=== PATIENT | male | born 1960 | race Asian ===

== ENCOUNTER 2016-12-25 21:23 | Emergency (ER) | payer OTHER ==
[~2016-12-25] VITALS: Ht 185.4 cm; Wt 83.1 kg
[~2016-12-25 21:23] MED LIST: dm meds
[2016-12-25 21:46] VITALS: Ht 185.4 cm; Wt 83.1 kg
[2016-12-25] MEDS ORDERED: AZIT250T94 PO (23:37)
[2016-12-25] MEDS ORDERED: UDROBDM PO (23:37)
[2016-12-25] MEDS ORDERED: CETI10CA PO (23:37)
--- NOTE | 2016-12-25 23:41 | ERD ---
ER Documentation Chief Complaint Date/Time DATE: 12/25/16 TIME: 23:39 Chief Complaint cough for 1 week HPI This 56-year-old male who presents to the emergency department today complaining of cough for the past week. Patient states the cough is dry and also worse at night. States he is taking [id number] medication with no improvement in symptoms. States he has history of diabetes. Denies any fevers or chills. ROS All systems reviewed and are negative except as per history of present illness. Medications Home Meds Active Scripts Guaifenesin-Dextromethorphan* (Robitussin* DM) 100MG/10MG/5ML Syrup, 10 ML PO Q4H Y for COUGH for 5 Days, ML Prov:ABBEY WILCOX PA-C 12/25/16 Cetirizine Hcl* (Zyrtec*) 10 Mg Capsule, 10 MG PO DAILY, #14 TAB.CHEW Prov:ABBEY WILCOX PA-C 12/25/16 Azithromycin* (Zithromax*) 250 Mg Tablet, 250 MG PO .ZPACK DIRECTED, #6 TAB TAKE 500 MG (2 TABS) THE FIRST DAY THEN 250 MG (1 TAB) DAYS 2-5 Prov:ABBEY WILCOX PA-C 12/25/16 Reported Medications [dm meds] Unknown Strength No Conflict Check 10/19/16 Allergies Allergies: Coded Allergies: No Known Allergy (Unverified , 12/25/16) PMhx/Soc History of Surgery: No Anesthesia Reaction: No Hx Neurological Disorder: No Hx Respiratory Disorders: No Hx Cardiac Disorders: No Hx Psychiatric Problems: No Hx Miscellaneous Medical Probl: Yes (DM) Hx Alcohol Use: No Hx Substance Use: No Hx Tobacco Use: No Smoking Status: Never smoker Physical Exam Vitals Vital Signs Date Time Temp Pulse Resp B/P Pulse Ox O2 Delivery O2 Flow Rate FiO2 12/25/16 21:46 98.6 75 18 139/70 99 Physical Exam Const: No acute distress Head: Atraumatic Eyes: Normal Conjunctiva ENT: Ears TMs normal. Nose no drainage. Throat no erythema no Neck: Full range of motion..~ No meningismus. Resp: Clear to auscultation bilaterally. No absent breath sounds. No wheezing. Cardio: Regular rate and rhythm, no murmurs Abd: Soft, non tender, non distended. Normal bowel sounds Skin: No petechiae or rashes Neur: Awake and alert Psych: Normal Mood and Affect Procedures/MDM Is a 56-year-old male who presents the emergency department today complaining of cough for the past week. Given the patient's age I did offer to obtain a chest x-ray for the patient however patient has declined at this time. Patient given a prescription for azithromycin to cover for possible pneumonia versus bronchitis. Patient is afebrile and otherwise well-appearing. He is not tachycardic and his oxygen saturation 99%. Low suspicion for pleural effusion, abscess, pneumothorax, PE. Patient was also given a prescription for Robitussin and Zyrtec. At this time the patient is stable for discharge and outpatient management. Patient should follow up with their PCP in the next 1-2 days. They may return to the emergency department sooner for any persistent or worsening of symptoms. Patient understood and agreed with the plan. Departure Diagnosis: Primary Impression: Cough Condition: Fair Patient Instructions: What Is Bronchitis? Referrals: JOSE CARLOS ARGUETA (PCP) Additional Instructions: Call your primary care doctor TOMORROW for an appointment during the next 1-2 days.See the doctor sooner or return here if your condition worsens before your appointment time. Take antibiotics as prescribed Take Robitussin and Zyrtec for cough ABBEY WILCOX PA-C Dec 25, 2016 23:41
[2016-12-26 00:16] VITALS: BP 131/72; PULSE 71; RESP 18; TEMP 98.1
== END 2016-12-26 00:16 | disposition home or self-care (01) ==
LOC: FTE 21:23
DX: R05 Cough (principal); E11.9 Type 2 diabetes mellitus without complications
CPT/HCPCS: 99283

== ENCOUNTER 2017-03-08 20:01 | Inpatient (IN) | payer OTHER ==
[~2017-03-08] VITALS: Ht 170.2 cm; Wt 81.0 kg
[~2017-03-08 20:01] MED LIST changes: +AZIT250T94 PO; +CETI10CA PO; +UDROBDM PO
[2017-03-08] MEDS ORDERED: SOD CHLORIDE 0.9% 1,000 ML IV STA (22:41)
[2017-03-08] MEDS ORDERED: METF-480 PO (22:55)
[2017-03-08] MEDS ORDERED: OMEP40CA6 PO (22:56)
[2017-03-08] MEDS ORDERED: CEFTRIAXONE 1 GM/50 ML (PMX) 50 ML IVPB ONE (23:00)
[2017-03-08] MEDS ORDERED: IBUPROFEN 600 MG TAB PO ONE (23:00)
[2017-03-08 23:19] LABS: ADD SCAN DIFF NO
[2017-03-08 23:23] LABS: BASOPHILS % 0.4 % (0.0-2.0); EOSINOPHILS % 0.3 % (0.0-7.0); HEMOGLOBIN 13.4 g/dl (14.0-18.0); LYMPHOCYTES # 2.1 10^3/ul (0.8-2.9); LYMPHOCYTES % 18.7 % (15.0-51.0); MEAN CORPUSCULAR HEMOGLOBIN 30.4 pg (29.0-33.0); MEAN CORPUSCULAR HGB CONC 34.4 g/dl (32.0-37.0); MEAN CORPUSCULAR VOLUME 88.4 fl (82.0-101.0); MEAN PLATELET VOLUME 10.3 fl (7.4-10.4); MONOCYTE # 1.3 10^3/ul (0.3-0.9); MONOCYTES % 11.8 % (0.0-11.0); NEUTROPHIL # 7.6 10^3/ul (1.6-7.5); NEUTROPHILS % 68.4 % (39.0-77.0); PLATELET COUNT 241 10^3/UL (140-415); RED BLOOD COUNT 4.41 10^6/ul (4.70-6.10); RED CELL DISTRIBUTION WIDTH 12.2 % (11.5-14.5); WHITE BLOOD COUNT 11.1 10^3/ul (4.8-10.8)
--- NOTE | 2017-03-08 23:25 | ERA ---
ER Documentation Chief Complaint Date/Time DATE: 03/08/17 TIME: 23:24 Chief Complaint chest pain abd pin, body pain, fever x 5 days. shaking HPI 56-year-old man complains of fever, diaphoresis, chills, epigastric abdominal pain 4-5 days. He states the pain is pressure-like in the epigastrium, nonradiating nonexertional and denies previous episodes, denies chest pain. Patient denies cough, no sore throat, no blood per rectum or melena, no headache or neck stiffness, no blurry vision. Patient denies recent new medications, recent antibiotic use, or recent travel. ROS All systems reviewed and are negative except as per history of present illness. Medications Home Meds Reported Medications Aspirin* (Aspirin* EC) 81 Mg Tablet.dr, 81 MG PO DAILY, TAB 03/08/17 Lisinopril* (Lisinopril*) 10 Mg Tablet, 10 MG PO DAILY, #30 TAB 03/08/17 Atorvastatin Calcium* (Atorvastatin Calcium*) 20 Mg Tablet, 20 MG PO QHS, #30 TAB 03/08/17 Pantoprazole* (Pantoprazole*) 40 Mg Tablet.dr, 40 MG PO DAILY, TAB 03/08/17 Metformin* (Glucophage*) 850 Mg Tablet, 850 MG PO WITH BREAKFAST DINNE, #60 TAB 03/08/17 Discontinued Reported Medications Omeprazole* (Omeprazole*) 40 Mg Capsule.dr, 40 MG PO DAILY, #30 CAP 03/08/17 [dm meds] Unknown Strength No Conflict Check 10/19/16 Discontinued Scripts Guaifenesin-Dextromethorphan* (Robitussin* DM) 100MG/10MG/5ML Syrup, 10 ML PO Q4H Y for COUGH for 5 Days, ML Prov:ABBEY WILCOX PA-C 12/25/16 Cetirizine Hcl* (Zyrtec*) 10 Mg Capsule, 10 MG PO DAILY, #14 TAB.CHEW Prov:ABBEY WILCOX PA-C 12/25/16 Azithromycin* (Zithromax*) 250 Mg Tablet, 250 MG PO .HeverPACK DIRECTED, #6 TAB TAKE 500 MG (2 TABS) THE FIRST DAY THEN 250 MG (1 TAB) DAYS 2-5 Prov:ABBEY WILCOX PA-C 12/25/16 Allergies Allergies: Coded Allergies: No Known Allergy (Unverified , 03/08/17) PMhx/Soc Diabetes mellitus, hypercholesterolemia, gastritis History of Surgery: No Anesthesia Reaction: No Hx Neurological Disorder: No Hx Respiratory Disorders: No Hx Cardiac Disorders: No Hx Psychiatric Problems: No Hx Miscellaneous Medical Probl: Yes (DM) Hx Alcohol Use: No Hx Substance Use: No Hx Tobacco Use: No Smoking Status: Never smoker FmHx Family History: diabetes Physical Exam Vitals Vital Signs Date Time Temp Pulse Resp B/P Pulse Ox O2 Delivery O2 Flow Rate FiO2 03/08/17 23:40 98.9 91 18 123/72 98 03/08/17 20:09 100.8 107 20 123/68 99 Physical Exam GENERAL: Well-developed, well-nourished, febrile HEENT: Moist mucous membranes, pink conjunctiva, no cervical spine tenderness or step-off deformities, no goiter, no jaundice or icterus, extraocular movements intact without pain. No submandibular induration, and no pharyngeal erythema NEURO: Alert and oriented 3, cranial nerves II through XII intact bilaterally, pupils equal round reactive to light, no focal deficits or facial asymmetry, sensation intact distally Strength 5/5 in upper and lower extremities bilaterally CARDIAC: Tachycardic and regular, no murmurs rubs or gallops LUNGS: Clear bilaterally no wheezing crackles or stridor ABDOMEN: Soft nontender, no guarding, no rigidity, no rebound, no psoas sign no obturator sign. Normoactive bowel sounds SKIN: Warm and dry to touch, no abrasions, contusions, or hematomas, no lacerations, no ecchymosis, no target lesions, and without ulcers EXTREMITIES: No clubbing cyanosis or edema, calves are bilaterally symmetrical, no Homans sign, no popliteal cord sign. Distal pulses equal and bilateral PSYCH: Normal affect without agitation or irritability Result Diagram: 03/08/17 2300 03/08/17 230 Results 24 hrs Laboratory Tests Test 03/08/17 23:00 03/09/17 00:30 White Blood Count 11.110^3/ul Red Blood Count 4.4110^6/ul Hemoglobin 13.4g/dl Hematocrit 39.0% Mean Corpuscular Volume 88.4fl Mean Corpuscular Hemoglobin 30.4pg Mean Corpuscular Hemoglobin Concent 34.4g/dl Red Cell Distribution Width 12.2% Platelet Count 77711^3/UL Mean Platelet Volume 10.3fl Neutrophils % 68.4% Lymphocytes % 18.7% Monocytes % 11.8% Eosinophils % 0.3% Basophils % 0.4% Nucleated Red Blood Cells % 0.0/100WBC Neutrophils # 7.610^3/ul Lymphocytes # 2.110^3/ul Monocytes # 1.310^3/ul Eosinophils # 0.010^3/ul Basophils # 0.010^3/ul Nucleated Red Blood Cells # 0.010^3/ul Urine Color LT. YELLOW Urine Clarity CLEAR Urine pH 8.0 Urine Specific [place] 1.015 Urine Ketones NEGATIVE Urine Nitrite NEGATIVE Urine Bilirubin NEGATIVE Urine Urobilinogen 2.0 E.U./dL Urine Leukocyte Esterase NEGATIVE Urine Microscopic RBC 0-2/HPF Urine Microscopic WBC 0-2/HPF Urine Hemoglobin NEGATIVE Urine Glucose 0.1%% Urine Total Protein 1+ Sodium Level 138mmol/L Potassium Level 3.8mmol/L Chloride Level 100mmol/L Carbon Dioxide Level 28mmol/L Anion Gap 14 Blood Urea Nitrogen 7mg/dl Creatinine 0.70mg/dl Glucose Level 169mg/dl Lactic Acid Level 1.3mmol/L 1.1mmol/L Calcium Level 9.4mg/dl Total Bilirubin 0.5mg/dl Direct Bilirubin 0.00mg/dl Indirect Bilirubin 0.5mg/dl Aspartate Amino Transf (AST/SGOT) 20IU/L Alanine Aminotransferase (ALT/SGPT) 26IU/L Alkaline Phosphatase 73IU/L Troponin I < 0.012ng/ml Total Protein 7.6g/dl Albumin 4.2g/dl Globulin 3.40g/dl Albumin/Globulin Ratio 1.23 Lipase 42426U/L Current Medications Medications (Trade) Dose Ordered Sig/Arleen Route PRN Reason Start Time Stop Time Status Last Admin Dose Admin Sodium Chloride (NS) 1,000 ml @ 2,000 mls/hr Q30M STAT IV 03/08/17 22:41 03/08/17 23:10 DC 03/08/17 23:08 Ibuprofen 600 mg 600 mg ONCE ONCE PO 03/08/17 23:00 03/08/17 23:01 DC 03/08/17 23:09 Ceftriaxone Sodium 50 ml @ 100 mls/hr ONCE ONCE IVPB 03/08/17 23:00 03/08/17 23:29 DC 03/08/17 23:08 Cefepime HCl 50 ml @ 100 mls/hr ONCE ONCE IVPB 03/09/17 00:30 03/09/17 00:59 DC Vancomycin HCl 250 ml @ 125 mls/hr ONCE IVPB 03/09/17 00:30 03/09/17 02:29 03/09/17 01:06 Sodium Chloride (NS) 1,000 ml @ 2,000 mls/hr Q30M ONCE IV 03/09/17 01:00 03/09/17 01:29 DC 03/09/17 01:14 Procedures/MDM IV line was established patient was placed on monitoring specialist rhythm strip revealed a sinus tachycardia at about 110 bpm with upright P and T waves. Patient was febrile. Blood and urine cultures have been ordered results are pending I will follow-up. EKG performed, read by me revealed a sinus tachycardia 108 bpm, normal axis, narrow QRS complex, no concerning ST elevations or depressions noted. I initially treated the patient with 2 L normal saline intravenously, ibuprofen 600 mg p.o., and ceftriaxone 1 g IV. This was later followed up with vancomycin 1 g IV. Chest X-ray 1V Interpreted by me: Soft Tissue: No acute abnormalities Bones: No acute abnormalities Mediastinum/Cardiac Silhouette/Lungs: No acute abnormalities Ultrasound of the gallbladder was performed no acute cholecystitis or CBD dilatation was noted. Please refer to radiologist dictation for full report. CT scan of the abdomen and pelvis is also been ordered and performed, results showed edematous pancreas consistent with acute pancreatitis, no pseudocyst formation noted. Please refer to radiologist dictation for full report. CBC is unremarkable, electrolytes normal, liver function tests normal, troponin was negative, lipase was elevated at over 10,000. Lactic acid was low at 1.3. Patient's infectious symptoms have not stabilized and the patient is at risk of rapid decompensation. The patient will be admitted for careful hydration, antibiotic therapy, and infectious source control. Severe Sepsis Assessment: Infectious Source: Acute pancreatitis No end organ damage. Severe Sepsis Managment: Blood Cultures X 2 before broad spectrum antibiotics initiated within 3 hours of recognition. 30 ml/kg NS bolus Completed Initial Lactate: 1.3 Repeat Lactate not indicated as initial < 2.0 Critical Care: Time: 30 minutes Treatments/Evaluations: Emergent fluid management, while maintaining close respiratory support. Immediate broad spectrum antibiotic therapy. Simultaneous assessment for possible sources in order to direct therapy. Consideration for invasive and chemical support to prevent respiratory or cardiac collapse. Septic Shock Assessment (1 hour post 30 ml/kg fluid bolus): Hypotension (SBP < 90 or 40 mmHg drop, MAP < 65): No Lactic acid > 4.0 No Perfusion Reassessment for Septic Shock: Temp 98.9F, Pulse 80, RR 16, BP 120/80 Heart Exam: Regular rate rhythm Lung Exam: No Crackles Capillary Refill: Less than 2 seconds Peripheral Pulses: Radially present Skin: Warm and dry Hypotensive Treatment (not required for isolated lactic acid elevation): Comfort Care: No Central LIne: Not indicated Vasopressor started: Not indicated Accepting Care Team: Current data and ongoing care discussed. Time: Time of admission Primary Provider: Hospitalist Consulting: Infectious disease Outstanding Data: none Departure Diagnosis: Primary Impression: Acute pancreatitis Qualified Code: K85.90 - Acute pancreatitis, unspecified complication status, unspecified pancreatitis type Condition: CARI Roca MD March 08, 2017 23:25
[2017-03-08 23:26] LABS: ADD UMIC YES; URINE BILIRUBIN (Dip) NEGATIVE (NEGATIVE); URINE BLOOD (Dip) NEGATIVE (NEGATIVE); URINE COLOR LT. YELLOW (YELLOW); URINE KETONES (Dip) NEGATIVE (NEGATIVE); URINE LEUKOCYTE ESTERASE (Dip) NEGATIVE (NEGATIVE); URINE NITRITE (Dip) NEGATIVE (NEGATIVE); URINE TOTAL PROTEIN (Dip) 1+ (NEGATIVE); URINE UROBILINOGEN (Dip) 2.0 E.U./dL (0.1-1.0)
[2017-03-08] MEDS ORDERED: ATOR20TA38 PO (23:36)
[2017-03-08] MEDS ORDERED: PANT40TA4 PO (23:36)
[2017-03-08] MEDS ORDERED: ASPI-664 PO (23:37)
[2017-03-08] MEDS ORDERED: LISI10TA2 PO (23:37)
[2017-03-08 23:46] LABS: ALANINE AMINOTRANSFERASE 26 IU/L (13-69); ALBUMIN 4.2 g/dl (3.3-4.9); ALBUMIN/GLOBULIN RATIO 1.23; ALKALINE PHOSPHATASE 73 IU/L (42-121); ANION GAP 14 (8-16); ASPARTATE AMINO TRANSFERASE 20 IU/L (15-46); BILIRUBIN,INDIRECT 0.5 mg/dl (0-1.1); BILIRUBIN,TOTAL 0.5 mg/dl (0.2-1.3); BLOOD UREA NITROGEN 7 mg/dl (7-20); CALCIUM 9.4 mg/dl (8.4-10.2); CARBON DIOXIDE 28 mmol/L (21-31); CHLORIDE 100 mmol/L (97-110); GLUCOSE 169 mg/dl (70-220); POTASSIUM 3.8 mmol/L (3.5-5.1); SODIUM 138 mmol/L (135-144); TOTAL PROTEIN 7.6 g/dl (6.1-8.1)
[2017-03-08 23:49] LABS: URINE RBCS 0-2 /HPF ([, 0])
[2017-03-08 23:55] LABS: TROPONIN-I < 0.012 ng/ml (0.00-0.12)
[2017-03-09] VITALS (13 sets, daily range): BP systolic 115–137; BP diastolic 68–73; PULSE 81–99; RESP 18–20; TEMP 98.9; Ht 170.2 cm; Wt 81.0 kg
--- NOTE | 2017-03-09 00:21 | RADRPT ---
PROCEDURE: XR Chest. CLINICAL INDICATION: Pain. TECHNIQUE: Single frontal chest x-ray. COMPARISON: None. FINDINGS: The cardiomediastinal silhouette is unremarkable. There is no congestive heart failure.. No focal i nfiltrate is seen. There is no pleural effusion. There is no pneumothorax. The osseous structures are unremarkable. IMPRESSION: 1. No active disease. RPTAT: HMVK .Shahzad Rao MD, Date Time Electronically viewed and signed by .Shahzad Rao MD, MD on 03/09/2017 00:21 .K/
[2017-03-09] MEDS ORDERED: CEFEPIME 1GM/50 ML (PMX) 50 ML IVPB ONE (00:30)
[2017-03-09] MEDS ORDERED: VANCOMYCIN 1 GM (PMX) 250 ML IVPB SCH (00:30)
[2017-03-09] MEDS ORDERED: SOD CHLORIDE 0.9% 1,000 ML IV ONE (01:00)
--- NOTE | 2017-03-09 01:37 | RADRPT ---
PROCEDURE: CT Abdomen and pelvis without contrast. CLINICAL INDICATION: Abdominal pain. TECHNIQUE: CT scan of the abdomen and pelvis was performed on a multi-detector high-resolution CT scanner. Contiguous axial images were obtained from the lung bases to the ischial tuberosities wit hout intravenous contrast. Coronal and sagittal reformatted images were also obtained. Images were reviewed on the PACS workstation. One or more of the following dose reduction techniques were used: - Automated exposure control. - Adjustment of the mA and/or kV according to patient size. - Use of iterative reconstruction technique. Exam CTD/vol = 10.64 mGy. Total exam DLP = 726.01 mGy-cm. COMPARISON: None. FINDINGS: Evaluation of the lung bases demonstrates mild bibasilar atelectasis. Abdomen: The liver is normal in size. There is no focal mass or dilatation of the biliary tree. T he gallbladder is not distended. The pancreatic tail is mildly edematous with mild adjacent strandi ng extending along the left anterior pararenal space. The spleen and left adrenal gland are within normal limits. There is a small right adrenal nodule measuring 11 mm with Hounsfield characteristic s consistent with adenoma. Bilateral kidneys are normal in size with a small cyst within the upper pole of the left kidney. There is no radiopaque renal or ureteral calculus identified. There is no hydronephrosis or hydroureter. There is no retroperitoneal adenopathy. The abdominal aorta is of normal caliber. There is no abnormal bowel wall thickening or distension. There is no bowel obstruction or free air . A normal appendix is identified. There is no diverticulosis or diverticulitis. There is no asci janine. Pelvis: The bladder is unremarkable. The prostate and seminal vesicles are within normal limits. There is no significant pelvic adenopathy or free fluid. Evaluation of the osseous structures demonstrates no suspicious lytic or blastic lesion. IMPRESSION: Edematous pancreatic tail with mild adjacent stranding suggestive of pancreatitis. Clinically corre late. There is no fluid collection or pseudocyst formation. Small right adrenal adenoma. .Dale Sharma MD, MD Date Time Electronically viewed and signed by .Dale Sharma MD, MD on 03/09/2017 01:37 .T/
--- NOTE | 2017-03-09 01:42 | RADRPT ---
PROCEDURE: Ultrasound of the abdomen. CLINICAL INDICATION: Right upper quadrant pain. TECHNIQUE: Sonographic images of the abdomen were performed. COMPARISON: No pertinent prior examinations were submitted for comparison. FINDINGS: Liver: The liver is normal in echogencity and size measuring approximately 15.5 cm. The hepatic vei ns and portal veins are patent with appropriate directional flow. No intrahepatic ductal dilatation is seen. Gallbladder: The gallbladder is contracted and has normal wall thickness. No pericholecystic fluid or gallstones are visualized. The common duct measures 2.5 mm. Pancreas: There is limited evaluation of the pancreatic body and tail. The visualized portions of the pancreas are unremarkable. Kidneys: The right kidney measures 10.5 cm. There is normal corticomedullary differentiation. Ther e is no evidence of renal calculus or hydronephrosis. IVC: The visualized portion of the inferior vena cava is unremarkable. Aorta: Normal in size. Free fluid: None. IMPRESSION: Unremarkable right upper quadrant ultrasound. RPTAT: HIKT .Zafar Jonse MD, MD Date Time Electronically viewed and signed by .Zafar Jones MD, on 03/09/2017 01:42 .T/
[2017-03-09] MEDS ORDERED: ONDANSETRON 4 MG INJ IV PRN (03:00)
[2017-03-09] MEDS ORDERED: HYDROmorphONE 1 MG/ML SYG IV PRN (03:00)
[2017-03-09] MEDS ORDERED: NACL 0.9% 3 ML SYG IV SCH (03:00)
--- NOTE | 2017-03-09 03:11 | HP ---
Date/Time of Note Date/Time of Note DATE: 03/09/17 TIME: 02:55 Assessment/Plan VTE Prophylaxis VTE Prophylaxis Intervention: SCD's Lines/Catheters IV [facility]ter Type [facility]from [facility] Peripheral IV Central line still needed: No Urinary Cath still in place: No Assessment/Plan Chief Complaint/Hosp Course This is a 56-year-old male being admitted to telemetry for: #1 acute pancreatitis: Etiology is unknown at this time. CT scan was negative for gallstones and ultrasound of the gallbladder was also negative for gallstones patient denies any alcohol history. He does have a history of hyperlipidemia we will check triglycerides. She also has a history of diabetes. In the ED he did receive broad-spectrum antibiotics. CT scan is indicative of pancreatitis however did not show any evidence of pseudocyst or fluid collection. At the current time we will keep the patient n.p.o., IV fluids at 150 cc an hour of normal saline, pain control. Monitor for further fevers. Check a lipase in the a.m. #2 hyperlipidemia: We will check lipid profile including triglycerides continue current statin #3 diabetes: Patient is currently on oral medications will DC oral medications for insulin sliding scale #4 GERD: Start on IV Protonix #5 hypertension: Continue lisinopril #6 incidentaloma: There is a small right adrenal nodule measuring 11 mm with Hounsfield characteristics consistent with adenoma. Will follow discussed with patient further management. #6 DVT and GI prophylaxis, put patient on SCDs, Protonix IV Problems: HPI/ROS Admit Date/Time Admit Date/Time 03/08/2017 Hx of Present Illness 56-year-old man complains of fever, diaphoresis, chills, epigastric abdominal pain 4-5 days. He states the pain is pressure-like in the epigastrium, nonradiating nonexertional and denies previous episodes, denies chest pain. Patient denies cough, no sore throat, no blood per rectum or melena, no headache or neck stiffness, no blurry vision. Patient denies recent new medications, recent antibiotic use, or recent travel. Denies any alcohol use. Upon admission to the ER patient had a temperature 100.8. Allergies: None Medications: See MAR ROS Const: Fevers 5 days nausea Eyes : No pain discharge or redness or change in visual acuity ENT: No pain, sore throat, congestion, congestion, dysphagia or discharge Respiratory: No shortness of breath, cough, sputum, wheezing, or pleuritic pain Cardiovascular: No chest pain, palpitation, PND, or edema GI : Negative except for what stated in the HPI Genitourinary: No dysuria, hematuria, flank pain , discharge or CVA tenderness Musculoskeletal: No joint pain, back pain, neck pain, restricted range of motion in neck or joints Skin: No rash, bruising or hives Neuro: No headache, dizziness, syncope, seizure, focal weakness Endocrine: No polyuria, polydipsia, temperature intolerance Psych: No hallucination, depression, anxiety or suicidal ideation PMH/Family/Social Past Medical History Diabetes mellitus, hyperlipidemia, GERD Past Surgical History None Past Surgical Hx: no surgical history Family History Significant Family History: hypertension (Mother) Social History Alcohol Use: none Smoking Status: Never smoker Drug Use: none Exam/Review of Systems Vital Signs Vitals Vital Signs Date Time Temp Pulse Resp B/P Pulse Ox O2 Delivery O2 Flow Rate FiO2 03/09/17 02:17 98.9 91 18 125/72 98 03/09/17 01:00 Room Air Exam Exam General: Patient is lying in bed and currently in no acute distress The patient is alert oriented -3 HEENT: Atraumatic, normocephalic. The pupils are equal, round and reactive. Extraocular motor are intact Neck: Supple with full range of motion. No rigidity or meningismus Chest: Nontender Lungs: Clear to auscultation bilaterally no crackles rales or wheezing Heart: Normal S1-S2, Regular rhythm and rate. No murmur, S3, or S4 Abdomen: Soft, tender to palpation over the epigastric region, positive bowel sounds Extremities: Normal to inspection, no edema no cyanosis Neurologic: Normal mental status, speech normal, cranial nerves II through XII are intact, motor and sensory are intact, no focal weakness Additional Comments CAT scan abdomen and pelvis IMPRESSION: Edematous pancreatic tail with mild adjacent stranding suggestive of pancreatitis. Clinically correlate. There is no fluid collection or pseudocyst formation. Small right adrenal adenoma. Ultrasound of the right upper quadrant IMPRESSION: Unremarkable right upper quadrant ultrasound. Chest x-ray No active disease Labs Result Diagram: 03/08/17 2300 03/08/17 2300 FARTUN CESAR March 09, 2017 03:06
[2017-03-09] MEDS: SOD CHLORIDE 0.9% 1,000 ML IV SCH ×4 (04:12→21:05)
[2017-03-09] MEDS: PANTOPRAZOLE 40 MG INJ IV SCH (06:35)
[2017-03-09] MEDS: LISINOPRIL 10 MG TAB PO SCH (08:59)
[2017-03-09] MEDS ORDERED: GLUCAGON 1 MG INJ IM PRN (11:30)
[2017-03-09] MEDS ORDERED: GLUCOSE GEL 15 GRAM TUBE BUCCAL PRN (11:30)
[2017-03-09] MEDS ORDERED: GLUCOSE GEL 15 GRAM TUBE PO PRN ×2 (11:30)
[2017-03-09] MEDS ORDERED: DEXTROSE 50% 50 ML SYRINGE IV PRN ×2 (11:30)
[2017-03-09] MEDS: INSULIN ASPART [NOVOLOG] 3 ML PEN SC SCH ×3 (13:00→21:00)
[2017-03-09] MEDS: ATORVASTATIN 20 MG TAB PO SCH (21:04)
[2017-03-10] VITALS (11 sets, daily range): BP systolic 121–146; BP diastolic 68–75; PULSE 76–95; RESP 16–18
[2017-03-10] MEDS ORDERED: ACETAMINOPHEN 325 MG TAB PO PRN (00:30)
[2017-03-10] MEDS: INSULIN ASPART [NOVOLOG] 3 ML PEN SC SCH ×6 (01:00→21:00)
[2017-03-10] MEDS: SOD CHLORIDE 0.9% 1,000 ML IV SCH ×3 (03:59→18:52)
[2017-03-10] MEDS: PANTOPRAZOLE 40 MG INJ IV SCH (06:22)
[2017-03-10 06:50] LABS: ADD SCAN DIFF NO
[2017-03-10 07:08] LABS: BASOPHILS % 0.3 % (0.0-2.0); EOSINOPHILS % 0.2 % (0.0-7.0); HEMATOCRIT 35.2 % (42.0-52.0); HEMOGLOBIN 12.1 g/dl (14.0-18.0); LYMPHOCYTES # 2.1 10^3/ul (0.8-2.9); LYMPHOCYTES % 22.2 % (15.0-51.0); MEAN CORPUSCULAR HEMOGLOBIN 30.6 pg (29.0-33.0); MEAN CORPUSCULAR HGB CONC 34.4 g/dl (32.0-37.0); MEAN CORPUSCULAR VOLUME 88.9 fl (82.0-101.0); MEAN PLATELET VOLUME 10.4 fl (7.4-10.4); MONOCYTE # 1.1 10^3/ul (0.3-0.9); MONOCYTES % 11.6 % (0.0-11.0); NEUTROPHILS % 65.4 % (39.0-77.0); PLATELET COUNT 207 10^3/UL (140-415); RED BLOOD COUNT 3.96 10^6/ul (4.70-6.10); RED CELL DISTRIBUTION WIDTH 12.1 % (11.5-14.5); WHITE BLOOD COUNT 9.2 10^3/ul (4.8-10.8)
[2017-03-10 07:26] LABS: PHOSPHORUS 4.3 mg/dl (2.5-4.9)
[2017-03-10 07:36] LABS: AMYLASE 446 U/L (11-123)
[2017-03-10 08:21] LABS: ALBUMIN 3.4 g/dl (3.3-4.9); ALBUMIN/GLOBULIN RATIO 1.09; BILIRUBIN,INDIRECT 0.6 mg/dl (0-1.1); BILIRUBIN,TOTAL 0.6 mg/dl (0.2-1.3); CALCIUM 8.6 mg/dl (8.4-10.2); CREATININE 0.65 mg/dl (0.61-1.24); TOTAL PROTEIN 6.5 g/dl (6.1-8.1)
[2017-03-10] MEDS: LISINOPRIL 10 MG TAB PO SCH (08:44)
--- NOTE | 2017-03-10 12:33 | PN ---
DATE: 03/10/2017 TIME OF EVALUATION: 11:30 a.m. SUBJECTIVE DATA: Complains of minimal abdominal discomfort. Complains of dysuria and frequent urination. OBJECTIVE DATA: VITAL SIGNS: Temperature 99.8, pulse rate 90, respiratory rate 17, blood pressure 146/72, oxygen saturation 97% on room air. GENERAL: This is a 56-year-old [place] male lying in bed in no apparent distress. HEENT: Head normocephalic and atraumatic. Eyes: Anicteric sclerae. Hyperpigmentation of the face. NECK: Supple. No JVD noticed. RESPIRATORY: Bilaterally clear to auscultation. No adventitious breath sounds heard. No use of accessory muscles of respiration. CARDIAC: Regular rate and rhythm. S1 and S2 heard. ABDOMEN: Soft. Tenderness in the left upper quadrant. No guarding. Bowel sounds hypoactive in all 4 quadrants. GENITOURINARY: Deferred. EXTREMITIES: No cyanosis, no clubbing, no edema. Peripheral pulses are palpable. NEUROLOGIC: The patient is awake, alert and oriented. Cranial nerves are grossly intact. LABORATORY AND DIAGNOSTIC DATA: WBC 7.2, hemoglobin 12.1, hematocrit 35.2, platelet count 207. Sodium 136, potassium 4.0, chloride 104, carbon dioxide 25 , anion gap 11, BUN 6, creatinine 0.64, glucose 108, calcium 8.6, phosphorus 4.3 , magnesium 2.0, amylase 446, lipase 6672. ASSESSMENT AND PLAN: 1. Acute pancreatitis. Etiology unclear. The patient is not a drinker. The patient has no evidence of any hypertriglyceridemia. The patient has no gallstones. The patient will be maintained on bowel rest. The patient will be started on empiric antibiotics since the patient was having fevers last night. The patient's CT scan did not show any evidence of pancreatic pseudocyst. 2. Type 2 diabetes mellitus. Hemoglobin A1c is 6.6. The patient will be continued on sliding scale insulin. 3. Incidental adrenal adenoma. The patient also has underlying hyperpigmentation of the skin. An endocrinology consult will be called for further evaluation of this. 4. Dyslipidemia. Continue statins. 5. Essential hypertension. Continue antihypertensives. 6. Benign prostatic hypertrophy. The patient will be started on alpha-1 antagonists. 7. Fluid, electrolytes and nutrition. N.p.o. except for medications. Continue IV fluids. 8. Deep venous thrombosis prophylaxis with bilateral sequential compression devices. 9. Gastrointestinal prophylaxis. Proton pump inhibitors. 10. Plan. Continue n.p.o. Continue pain medications. Continue empiric antibiotics. Obtain Endocrinology evaluation for adrenal adenoma. The case was discussed with Dr. Phillips. The plan of care was explained to the patient's family who was at the bedside. SHAWNA PHILLIPS MD, AM/ZAINAB Conf#: [id number] DID#: [id number] MTDD
[2017-03-10] MEDS: PIPER-TAZO 3.375 GM IV (PMX) 100 ML IVPB SCH ×2 (13:47→21:24)
[2017-03-10] MEDS: TAMSULOSIN (SR) 0.4 MG CAP PO SCH (21:23)
[2017-03-10] MEDS: ATORVASTATIN 20 MG TAB PO SCH (21:24)
[2017-03-10] MEDS ORDERED: DEXAMETHASONE 1 MG TAB PO ONE (23:30)
[2017-03-11 00:04] VITALS: PULSE 90
[2017-03-11] MEDS: INSULIN ASPART [NOVOLOG] 3 ML PEN SC SCH ×6 (01:00→21:00)
[2017-03-11] MEDS: SOD CHLORIDE 0.9% 1,000 ML IV SCH ×4 (02:05→16:42)
[2017-03-11 04:06] VITALS: PULSE 85
[2017-03-11] MEDS: PANTOPRAZOLE 40 MG INJ IV SCH (05:07)
[2017-03-11] MEDS: PIPER-TAZO 3.375 GM IV (PMX) 100 ML IVPB SCH ×3 (05:08→21:25)
[2017-03-11 06:42] LABS: ADD SCAN DIFF NO
[2017-03-11 06:44] LABS: BASOPHILS % 0.2 % (0.0-2.0); EOSINOPHILS # 0.1 10^3/ul (0.0-0.5); EOSINOPHILS % 0.6 % (0.0-7.0); HEMATOCRIT 34.5 % (42.0-52.0); LYMPHOCYTES # 1.1 10^3/ul (0.8-2.9); LYMPHOCYTES % 12.9 % (15.0-51.0); MEAN CORPUSCULAR HEMOGLOBIN 30.3 pg (29.0-33.0); MEAN CORPUSCULAR HGB CONC 34.8 g/dl (32.0-37.0); MEAN CORPUSCULAR VOLUME 87.1 fl (82.0-101.0); MEAN PLATELET VOLUME 10.3 fl (7.4-10.4); MONOCYTE # 0.9 10^3/ul (0.3-0.9); MONOCYTES % 9.8 % (0.0-11.0); NEUTROPHIL # 6.6 10^3/ul (1.6-7.5); PLATELET COUNT 248 10^3/UL (140-415); RED BLOOD COUNT 3.96 10^6/ul (4.70-6.10); WHITE BLOOD COUNT 8.6 10^3/ul (4.8-10.8)
[2017-03-11 07:09] LABS: CALCIUM 8.7 mg/dl (8.4-10.2); CREATININE 0.67 mg/dl (0.61-1.24); POTASSIUM 3.9 mmol/L (3.5-5.1)
[2017-03-11 07:10] VITALS: BP 109/60; RESP 18
[2017-03-11] MEDS: LISINOPRIL 10 MG TAB PO SCH (09:35)
--- NOTE | 2017-03-11 10:55 | PN ---
Date/Time of Note Date/Time of Note DATE: 03/11/17 TIME: 10:53 Assessment/Plan VTE Prophylaxis VTE Prophylaxis Intervention: SCD's Lines/Catheters IV [facility]ter [facility] (from [facility]): Peripheral IV Urinary Cath still in place: No Assessment/Plan Chief Complaint/Hosp Course 1. Acute pancreatitis. Etiology unclear. The patient is not a drinker. The patient has no evidence of any hypertriglyceridemia. The patient has no gallstones. The patient will be maintained on bowel rest. The on empiric antibiotics because of febrile illness. The patient's CT scan did not show any evidence of pancreatic pseudocyst. 2. Type 2 diabetes mellitus. Hemoglobin A1c is 6.6. The patient will be continued on sliding scale insulin. 3. Incidental adrenal adenoma. The patient being followed by Endocrinology. 4. Dyslipidemia. Continue statins. 5. Essential hypertension. Continue antihypertensives. 6. Benign prostatic hypertrophy. The patient will be continued on alpha-1 antagonists. 7. Fluid, electrolytes and nutrition. N.p.o. except for medications. Continue IV fluids. 8. Deep venous thrombosis prophylaxis with bilateral sequential compression devices. 9. Gastrointestinal prophylaxis. Proton pump inhibitors. 10. Plan. Continue n.p.o. Continue pain medications. Continue empiric antibiotics. The case was discussed with Dr. Salas. The plan of care was explained to the patient's son who was at the bedside. Problems: Subjective 24 Hr Interval Summary Free Text/Dictation Minimal abdominal pain. Exam/Review of Systems Vital Signs Vitals Vital Signs Date Time Temp Pulse Resp B/P Pulse Ox O2 Delivery O2 Flow Rate FiO2 03/11/17 07:10 99.1 89 18 109/60 03/10/17 18:53 95 03/09/17 01:00 Room Air Intake and Output 03/10/17 03/10/17 03/11/17 15:00 23:00 07:00 Intake Total 1600 ml 40 ml Balance 1600 ml 40 ml Exam GENERAL: This is a 56-year-old [place] male lying in bed in no apparent distress. HEENT: Head normocephalic and atraumatic. Eyes: Anicteric sclerae. Hyperpigmentation of the face. NECK: Supple. No JVD noticed. RESPIRATORY: Bilaterally clear to auscultation. No adventitious breath sounds heard. No use of accessory muscles of respiration. CARDIAC: Regular rate and rhythm. S1 and S2 heard. ABDOMEN: Soft. Tenderness in the left upper quadrant. No guarding. Bowel sounds hypoactive in all 4 quadrants. GENITOURINARY: Deferred. EXTREMITIES: No cyanosis, no clubbing, no edema. Peripheral pulses are palpable. NEUROLOGIC: The patient is awake, alert and oriented. Cranial nerves are grossly intact. Results Result Diagram: 03/11/17 0558 03/11/17 0558 Results 24 hrs Laboratory Tests Test 03/10/17 12:59 03/10/17 16:45 03/10/17 20:46 03/11/17 02:07 Bedside Glucose 115 107 100 96 Test 03/11/17 05:06 03/11/17 05:58 03/11/17 08:03 Bedside Glucose 105 116 White Blood Count 8.6 Red Blood Count 3.96 L Hemoglobin 12.0 L Hematocrit 34.5 L Mean Corpuscular Volume 87.1 Mean Corpuscular Hemoglobin 30.3 Mean Corpuscular Hemoglobin Concent 34.8 Red Cell Distribution Width 12.0 Platelet Count 248 Mean Platelet Volume 10.3 Neutrophils % 76.0 Lymphocytes % 12.9 L Monocytes % 9.8 Eosinophils % 0.6 Basophils % 0.2 Nucleated Red Blood Cells % 0.0 Neutrophils # 6.6 Lymphocytes # 1.1 Monocytes # 0.9 Eosinophils # 0.1 Basophils # 0.0 Nucleated Red Blood Cells # 0.0 Sodium Level 136 Potassium Level 3.9 Chloride Level 102 Carbon Dioxide Level 23 Anion Gap 15 Blood Urea Nitrogen 8 Creatinine 0.67 Glucose Level 109 Calcium Level 8.7 Magnesium Level 2.1 Amylase Level 242 #H Lipase 2940 H Random Cortisol 6.7 Medications Medications Current Medications Sodium Chloride (NS) 1,000 ml @ 150 mls/hr Q6H40M IV Last administered on 09:36; Admin Dose 150 MLS/HR; Start 03/09/17 at 02:52 Ondansetron HCl (Zofran Inj) 4 mg Q6H PRN IV NAUSEA AND/OR VOMITING; Start 03/09 at 03:00 Hydromorphone HCl (Dilaudid) 0.5 mg Q4H PRN IV PAIN LEVEL 7-10; Start 03/09/17 at 03:00 Pantoprazole (Protonix Iv) 40 mg DAILY@06 IV Last administered on 03/11/17 05: 07; Admin Dose 40 MG; Start 03/09/17 at 06:00 Atorvastatin Calcium (Lipitor) 20 mg QHS PO Last administered on 03/10/17 21:24 ; Admin Dose 20 MG; Start 03/09/17 at 21:00 Lisinopril (Zestril) 10 mg DAILY PO Last administered on 03/11/17 09:35; Admin Dose 10 MG; Start 03/09/17 at 09:00 Insulin Aspart (Novolog Insulin Pen) NOVOLOG *MILD* ALGORITHM Q4 SC ; Start 03/09 at 13:00 Miscellaneous Information 1 ea NOTE XX ; Start 03/09/17 at 11:30 Glucose (Glutose) 15 gm Q15M PRN PO DECREASED GLUCOSE; Start 03/09/17 at 11:30 Glucose (Glutose) 22.5 gm Q15M PRN PO DECREASED GLUCOSE; Start 03/09/17 at 11:30 Dextrose (D50w Syringe) 25 ml Q15M PRN IV DECREASED GLUCOSE; Start 03/09/17 at 11:30 Dextrose (D50w Syringe) 50 ml Q15M PRN IV DECREASED GLUCOSE; Start 03/09/17 at 11:30 Glucagon (Glucagen) 1 mg Q15M PRN IM DECREASED GLUCOSE; Start 03/09/17 at 11:30 Glucose (Glutose) 15 gm Q15M PRN BUCCAL DECREASED GLUCOSE; Start 03/09/17 at 11: 30 Acetaminophen 650 mg 650 mg Q6H PRN PO PAIN AND OR ELEVATED TEMP Last administered on 03/10/17 00:32; Admin Dose 650 MG; Start 03/10/17 at 00:30 Piperacillin Sod/ Tazobactam Sod (Zosyn 3.375gm/ 100 ml (Pmx)) 100 ml @ 200 mls /hr Q8 IVPB Last administered on 03/11/17 05:08; Admin Dose 200 MLS/HR; Start 03/10/17 at 14:00 Tamsulosin HCl (Flomax) 0.4 mg HS PO Last administered on 03/10/17 21:23; Admin Dose 0.4 MG; Start 03/10/17 at 21:00 SHAWNA CASTREJON NP March 11, 2017 10:54
[2017-03-11 11:33] LABS: IRON 21 ug/dl (35-150)
[2017-03-11 11:43] LABS: TOTAL IRON BINDING CAPACITY 237 ug/dl (241-421)
[2017-03-11 20:06] VITALS: BP 131/69; RESP 16
[2017-03-11] MEDS: TAMSULOSIN (SR) 0.4 MG CAP PO SCH (21:25)
[2017-03-11] MEDS: ATORVASTATIN 20 MG TAB PO SCH (21:25)
[2017-03-12 00:26] VITALS: BP 124/68; RESP 16
[2017-03-12] MEDS: SOD CHLORIDE 0.9% 1,000 ML IV SCH ×4 (01:00→17:08)
[2017-03-12] MEDS: INSULIN ASPART [NOVOLOG] 3 ML PEN SC SCH ×6 (01:00→21:00)
[2017-03-12 04:17] VITALS: BP 128/71; RESP 16
[2017-03-12] MEDS: PANTOPRAZOLE 40 MG INJ IV SCH ×2 (05:29→18:09)
[2017-03-12] MEDS: PIPER-TAZO 3.375 GM IV (PMX) 100 ML IVPB SCH ×3 (05:30→21:18)
[2017-03-12 06:30] VITALS: BP 135/68; PULSE 83; RESP 18
[2017-03-12 07:12] LABS: ADD SCAN DIFF NO
[2017-03-12 07:22] LABS: BASOPHILS % 0.4 % (0.0-2.0); EOSINOPHILS # 0.2 10^3/ul (0.0-0.5); EOSINOPHILS % 2.1 % (0.0-7.0); HEMATOCRIT 35.8 % (42.0-52.0); LYMPHOCYTES # 2.4 10^3/ul (0.8-2.9); LYMPHOCYTES % 24.4 % (15.0-51.0); MEAN CORPUSCULAR HEMOGLOBIN 29.5 pg (29.0-33.0); MEAN CORPUSCULAR HGB CONC 33.5 g/dl (32.0-37.0); MEAN PLATELET VOLUME 10.2 fl (7.4-10.4); MONOCYTE # 1.1 10^3/ul (0.3-0.9); MONOCYTES % 10.8 % (0.0-11.0); NEUTROPHILS % 62.1 % (39.0-77.0); PLATELET COUNT 267 10^3/UL (140-415); RED BLOOD COUNT 4.07 10^6/ul (4.70-6.10); WHITE BLOOD COUNT 9.7 10^3/ul (4.8-10.8)
[2017-03-12 07:33] LABS: MAGNESIUM 1.9 mg/dl (1.7-2.5); PHOSPHORUS 3.9 mg/dl (2.5-4.9)
[2017-03-12 07:35] LABS: ALBUMIN 3.4 g/dl (3.3-4.9); ALBUMIN/GLOBULIN RATIO 1.06; BILIRUBIN,INDIRECT 0.4 mg/dl (0-1.1); BILIRUBIN,TOTAL 0.4 mg/dl (0.2-1.3); CALCIUM 8.6 mg/dl (8.4-10.2); CREATININE 0.69 mg/dl (0.61-1.24); POTASSIUM 3.7 mmol/L (3.5-5.1); TOTAL PROTEIN 6.6 g/dl (6.1-8.1)
[2017-03-12 07:41] VITALS: BP 128/70; RESP 19
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
--- NOTE | 2017-03-12 09:31 | PN ---
Date/Time of Note Date/Time of Note DATE: 03/12/17 TIME: 09:29 Assessment/Plan VTE Prophylaxis VTE Prophylaxis Intervention: SCD's Lines/Catheters [facility] Peripheral IV Urinary Cath still in place: No Assessment/Plan Chief Complaint/Hosp Course 1. Acute pancreatitis. Etiology unclear. The patient is not a drinker. The patient has no evidence of any hypertriglyceridemia. The patient has no gallstones. The patient will be maintained on bowel rest. The on empiric antibiotics because of febrile illness. The patient's CT scan did not show any evidence of pancreatic pseudocyst. The patient will be followed by communications technician. 2. Melena. No onset on 03/12/2017. Will obtain stool for OB. Will monitor H&H closely. Will transfuse as needed. Obtain a gastroenterology consult. 3. Type 2 diabetes mellitus. Hemoglobin A1c is 6.6. The patient will be continued on sliding scale insulin. 4. Incidental adrenal adenoma. The patient being followed by Endocrinology. 5. Impotence. The patient being followed by endocrinology. 6. Dyslipidemia. Continue statins. 6. Essential hypertension. Continue antihypertensives. 7. Benign prostatic hypertrophy. The patient will be continued on alpha-1 antagonists. 8. Normocytic, normochromic anemia. Iron panel showing iron deficiency. Will start the patient on iron supplements. 9. Fluid, electrolytes and nutrition. N.p.o. except for medications. Continue IV fluids. 10. Deep venous thrombosis prophylaxis with bilateral sequential compression devices. 11. Gastrointestinal prophylaxis. Proton pump inhibitors. 12. Plan. Continue n.p.o. Continue pain medications. Continue empiric antibiotics. Start iron supplements. Obtain gastroenterology consult. The case was discussed with Dr. Salas. Problems: Subjective 24 Hr Interval Summary Free Text/Dictation No onset melena. Complains of impotence for past 6 months. Exam/Review of Systems Vital Signs Vitals Vital Signs Date Time Temp Pulse Resp B/P Pulse Ox O2 Delivery O2 Flow Rate FiO2 03/12/17 07:41 98.7 75 19 128/70 96 03/12/17 06:30 Room Air Intake and Output 03/11/17 03/11/17 03/12/17 15:00 23:00 07:00 Intake Total 1700 ml 20 ml Balance 1700 ml 20 ml Exam GENERAL: This is a 56-year-old [place] male lying in bed in no apparent distress. HEENT: Head normocephalic and atraumatic. Eyes: Anicteric sclerae. Hyperpigmentation of the face. NECK: Supple. No JVD noticed. RESPIRATORY: Bilaterally clear to auscultation. No adventitious breath sounds heard. No use of accessory muscles of respiration. CARDIAC: Regular rate and rhythm. S1 and S2 heard. ABDOMEN: Soft. Tenderness in the left upper quadrant. No guarding. Bowel sounds hypoactive in all 4 quadrants. GENITOURINARY: Deferred. EXTREMITIES: No cyanosis, no clubbing, no edema. Peripheral pulses are palpable. NEUROLOGIC: The patient is awake, alert and oriented. Cranial nerves are grossly intact. Results Result Diagram: 03/12/17 0550 03/12/17 0550 Results 24 hrs Laboratory Tests Test 03/11/17 10:15 03/11/17 12:55 03/11/17 16:41 03/11/17 20:33 Random Cortisol 3.3 Bedside Glucose 118 103 106 Test 03/12/17 05:00 03/12/17 05:38 03/12/17 05:50 Phosphorus Level 3.9 Magnesium Level 1.9 Bedside Glucose 98 White Blood Count 9.7 Red Blood Count 4.07 L Hemoglobin 12.0 L Hematocrit 35.8 L Mean Corpuscular Volume 88.0 Mean Corpuscular Hemoglobin 29.5 Mean Corpuscular Hemoglobin Concent 33.5 Red Cell Distribution Width 12.0 Platelet Count 267 Mean Platelet Volume 10.2 Neutrophils % 62.1 Lymphocytes % 24.4 Monocytes % 10.8 Eosinophils % 2.1 Basophils % 0.4 Nucleated Red Blood Cells % 0.0 Neutrophils # 6.0 Lymphocytes # 2.4 Monocytes # 1.1 H Eosinophils # 0.2 Basophils # 0.0 Nucleated Red Blood Cells # 0.0 Sodium Level 136 Potassium Level 3.7 Chloride Level 102 Carbon Dioxide Level 25 Anion Gap 13 Blood Urea Nitrogen 9 Creatinine 0.69 Glucose Level 104 Calcium Level 8.6 Total Bilirubin 0.4 Direct Bilirubin 0.00 Indirect Bilirubin 0.4 Aspartate Amino Transf (AST/SGOT) 21 Alanine Aminotransferase (ALT/SGPT) 29 Alkaline Phosphatase 61 Total Protein 6.6 Albumin 3.4 Globulin 3.20 Albumin/Globulin Ratio 1.06 Amylase Level 155 H Lipase 1523 H Medications Medications Current Medications Sodium Chloride (NS) 1,000 ml @ 150 mls/hr Q6H40M IV Last administered on 04:12; Admin Dose 150 MLS/HR; Start 03/09/17 at 02:52 Ondansetron HCl (Zofran Inj) 4 mg Q6H PRN IV NAUSEA AND/OR VOMITING; Start 03/09 at 03:00 Hydromorphone HCl (Dilaudid) 0.5 mg Q4H PRN IV PAIN LEVEL 7-10; Start 03/09/17 at 03:00 Pantoprazole (Protonix Iv) 40 mg DAILY@06 IV Last administered on 03/12/17 05: 29; Admin Dose 40 MG; Start 03/09/17 at 06:00 Atorvastatin Calcium (Lipitor) 20 mg QHS PO Last administered on 03/11/17 21:25 ; Admin Dose 20 MG; Start 03/09/17 at 21:00 Lisinopril (Zestril) 10 mg DAILY PO Last administered on 03/11/17 09:35; Admin Dose 10 MG; Start 03/09/17 at 09:00 Insulin Aspart (Novolog Insulin Pen) NOVOLOG *MILD* ALGORITHM Q4 SC ; Start 03/09 at 13:00 Miscellaneous Information 1 ea NOTE XX ; Start 03/09/17 at 11:30 Glucose (Glutose) 15 gm Q15M PRN PO DECREASED GLUCOSE; Start 03/09/17 at 11:30 Glucose (Glutose) 22.5 gm Q15M PRN PO DECREASED GLUCOSE; Start 03/09/17 at 11:30 Dextrose (D50w Syringe) 25 ml Q15M PRN IV DECREASED GLUCOSE; Start 03/09/17 at 11:30 Dextrose (D50w Syringe) 50 ml Q15M PRN IV DECREASED GLUCOSE; Start 03/09/17 at 11:30 Glucagon (Glucagen) 1 mg Q15M PRN IM DECREASED GLUCOSE; Start 03/09/17 at 11:30 Glucose (Glutose) 15 gm Q15M PRN BUCCAL DECREASED GLUCOSE; Start 03/09/17 at 11: 30 Acetaminophen 650 mg 650 mg Q6H PRN PO PAIN AND OR ELEVATED TEMP Last administered on 03/10/17 00:32; Admin Dose 650 MG; Start 03/10/17 at 00:30 Piperacillin Sod/ Tazobactam Sod (Zosyn 3.375gm/ 100 ml (Pmx)) 100 ml @ 200 mls /hr Q8 IVPB Last administered on 03/12/17 05:30; Admin Dose 200 MLS/HR; Start 03/10/17 at 14:00 Tamsulosin HCl (Flomax) 0.4 mg HS PO Last administered on 03/11/17 21:25; Admin Dose 0.4 MG; Start 03/10/17 at 21:00 Cosyntropin (Cortrosyn) 0.25 mg ONCE ONCE IV ; Start 03/12/17 at 10:30; Stop 03/12/17 at 10:31 SHAWNA CASTREJON NP March 12, 2017 09:31
[2017-03-12] MEDS: SOD FERRIC GLUC COMPLX 125 MG in SOD CHLORIDE 0.9% 100 ML IVPB SCH (10:26)
[2017-03-12] MEDS ORDERED: COSYNTROPIN 0.25 MG INJ IV ONE (10:30)
[2017-03-12 10:37] VITALS: BP 135/75; PULSE 79
[2017-03-12] MEDS: LISINOPRIL 10 MG TAB PO SCH (10:37)
--- NOTE | 2017-03-12 12:47 | CONS ---
Date/Time of Note Date/Time of Note DATE: 03/12/17 TIME: 12:33 Assessment/Plan Assessment/Plan Additional Assessment/Plan Melena stool Evaluate GI bleed versus chronic iron deficiency vs other etiology Stool OB, if positive strongly recommend EGD Monitor H&H daily, transfuse 2 units for hemoglobin less than 7.[address] abdomen: The liver is normal in size. There is no focal mass or dilatation of the biliary tree. The gallbladder is not distended. The pancreatic tail is mildly edematous with mild adjacent stranding extending along the left anterior pararenal space. The spleen and left adrenal gland are within normal limits. There is a smal l right adrenal nodule measuring 11 mm with Hounsfield characteristics consistent with adenoma. There is no abnormal bowel wall thickening or distension. There is no bowel obstruction or free air. A normal appendix is identified. There is no diverticulosis or diverticulitis. There is no ascites. Continue PPI twice daily EGD tomorrow with Dr. Avalos.pt, , and daughter advised of R/B/A of procedure and she provides informed consent to proceed Pancreatitis Rule out choledocholithiasis IVF Hydration Nausea and pain control NPO till pain free Review MRCP ERCP if clinically indicated and may occur in place of EGD, pt, , and daughter advised of R/B/A of procedure and she provides informed consent to proceed Monitor LFTs, amylase, lipase May require Surgery consult Hyperpigmentation Management per primary Erectile dysfunction Management per primary Awaiting hormone test Diabetes mellitus type 2 Management per primary Accu-Cheks per protocol Hypertension Continue home medications Management per primary Hyperlipidemia Continue home medications Management per primary Iron deficiency Currently getting supplementation Management per primary Problem #1 Management per Primary [] following Problem #1 Management per Primary [] following Problem #1 Management per Primary [] following Problem #1 Management per Primary [] following Further recommendations depend on clinical course Patient seen in collaboration with Dr. Avalos Consultation Date/Type/Reason Admit Date/Time 03/08/2017 Type of Consultation: Gastroenterology Reason for Consultation Pancreatitis Hx of Present Illness Mr.Mdhabibur Alcantar is a 56-year-old male that presented to the ED secondary complaints of epigastric and left upper quadrant abdominal pain, fever, chills, diaphoresis for the last week. Patient denies nausea and vomiting. At bedside patient presently reports left side mid abdominal pain that comes and goes. Patient denies melena stools and diarrhea. Patient denies new medication, sick contacts, alcohol use, and travel outside the [place]. Patient does have past medical history of melasma, high cholesterol, erectile dysfunction, and acid reflux that has been well controlled for 10 years with omeprazole 40 mg daily. Gallbladder ultrasound negative for gallstones however lipase elevated but trending downward. Will order MRCP to further evaluate. Additionally, report of melena stools at bedside yesterday. Hemoglobin stable at 12.0. Constitutional: no complaints ENT: no complaints Respiratory: no complaints Cardiovascular: no complaints Gastrointestinal: pain Genitourinary: other (Symptoms of BPH; erectile dysfunction) Neurologic: no complaints Past Medical History Medical History: diabetes, hypertension Past Surgical History Past Surgical Hx: no surgical history Social History Alcohol Use: none Smoking Status: Never smoker Drug Use: none Exam/Review of Systems Vital Signs Vitals Vital Signs Date Time Temp Pulse Resp B/P Pulse Ox O2 Delivery O2 Flow Rate FiO2 03/12/17 10:37 79 135/75 03/12/17 07:41 98.7 19 96 03/12/17 06:30 Room Air Intake and Output 03/11/17 03/11/17 03/12/17 15:00 23:00 07:00 Intake Total 1700 ml 20 ml Balance 1700 ml 20 ml Exam Constitutional: alert, oriented, well developed Psych: nl mood/affect Head: normocephalic Eyes: EOMI, nl conjunctiva, nl lids ENMT: nl external ears & nose, nl lips & teeth, nl nasal mucosa & septum Respiratory: clear to auscultation, normal air movement Cardiovascular: regular rate and rhythm Gastrointestinal: soft, slight epigastric and slight left lower quadrant tenderness Musculoskeletal: nl extremities to inspection Neurological: JR. SYSTEMS ADMINISTRATOR II-XII intact Results Result Diagram: 03/12/17 0550 03/12/17 0550 Results 24 hrs Laboratory Tests Test 03/11/17 12:55 03/11/17 16:41 03/11/17 20:33 03/12/17 05:00 Bedside Glucose 118 103 106 Phosphorus Level 3.9 Magnesium Level 1.9 Test 03/12/17 05:38 03/12/17 05:50 03/12/17 10:15 03/12/17 10:32 Bedside Glucose 98 97 White Blood Count 9.7 Red Blood Count 4.07 L Hemoglobin 12.0 L Hematocrit 35.8 L Mean Corpuscular Volume 88.0 Mean Corpuscular Hemoglobin 29.5 Mean Corpuscular Hemoglobin Concent 33.5 Red Cell Distribution Width 12.0 Platelet Count 267 Mean Platelet Volume 10.2 Neutrophils % 62.1 Lymphocytes % 24.4 Monocytes % 10.8 Eosinophils % 2.1 Basophils % 0.4 Nucleated Red Blood Cells % 0.0 Neutrophils # 6.0 Lymphocytes # 2.4 Monocytes # 1.1 H Eosinophils # 0.2 Basophils # 0.0 Nucleated Red Blood Cells # 0.0 Sodium Level 136 Potassium Level 3.7 Chloride Level 102 Carbon Dioxide Level 25 Anion Gap 13 Blood Urea Nitrogen 9 Creatinine 0.69 Glucose Level 104 Calcium Level 8.6 Total Bilirubin 0.4 Direct Bilirubin 0.00 Indirect Bilirubin 0.4 Aspartate Amino Transf (AST/SGOT) 21 Alanine Aminotransferase (ALT/SGPT) 29 Alkaline Phosphatase 61 Total Protein 6.6 Albumin 3.4 Globulin 3.20 Albumin/Globulin Ratio 1.06 Amylase Level 155 H Lipase 1523 H CA 19-9 Antigen 43.4 H Vitamin B12 Level 351 Random Cortisol 12.3 Test 03/12/17 10:50 Random Cortisol 18.1 Medications Medications Current Medications Sodium Chloride (NS) 1,000 ml @ 150 mls/hr Q6H40M IV Last administered on 04:12; Admin Dose 150 MLS/HR; Start 03/09/17 at 02:52 Ondansetron HCl (Zofran Inj) 4 mg Q6H PRN IV NAUSEA AND/OR VOMITING; Start 03/09 at 03:00 Hydromorphone HCl (Dilaudid) 0.5 mg Q4H PRN IV PAIN LEVEL 7-10; Start 03/09/17 at 03:00 Pantoprazole (Protonix Iv) 40 mg DAILY@06 IV Last administered on 03/12/17 05: 29; Admin Dose 40 MG; Start 03/09/17 at 06:00 Atorvastatin Calcium (Lipitor) 20 mg QHS PO Last administered on 03/11/17 21:25 ; Admin Dose 20 MG; Start 03/09/17 at 21:00 Lisinopril (Zestril) 10 mg DAILY PO Last administered on 03/12/17 10:37; Admin Dose 10 MG; Start 03/09/17 at 09:00 Insulin Aspart (Novolog Insulin Pen) NOVOLOG *MILD* ALGORITHM Q4 SC ; Start 03/09 at 13:00 Miscellaneous Information 1 ea NOTE XX ; Start 03/09/17 at 11:30 Glucose (Glutose) 15 gm Q15M PRN PO DECREASED GLUCOSE; Start 03/09/17 at 11:30 Glucose (Glutose) 22.5 gm Q15M PRN PO DECREASED GLUCOSE; Start 03/09/17 at 11:30 Dextrose (D50w Syringe) 25 ml Q15M PRN IV DECREASED GLUCOSE; Start 03/09/17 at 11:30 Dextrose (D50w Syringe) 50 ml Q15M PRN IV DECREASED GLUCOSE; Start 03/09/17 at 11:30 Glucagon (Glucagen) 1 mg Q15M PRN IM DECREASED GLUCOSE; Start 03/09/17 at 11:30 Glucose (Glutose) 15 gm Q15M PRN BUCCAL DECREASED GLUCOSE; Start 03/09/17 at 11: 30 Acetaminophen 650 mg 650 mg Q6H PRN PO PAIN AND OR ELEVATED TEMP Last administered on 03/10/17 00:32; Admin Dose 650 MG; Start 03/10/17 at 00:30 Piperacillin Sod/ Tazobactam Sod (Zosyn 3.375gm/ 100 ml (Pmx)) 100 ml @ 200 mls /hr Q8 IVPB Last administered on 03/12/17 05:30; Admin Dose 200 MLS/HR; Start 03/10/17 at 14:00 Tamsulosin HCl 0.4 mg 0.4 mg HS PO Last administered on 03/11/17 21:25; Admin Dose 0.4 MG; Start 03/10/17 at 21:00 Ferric Sodium Gluconate Complex/ Sodium Chloride (Ferrlecit/NS) 110 ml @ 100 mls/hr Q24H IVPB Last administered on 03/12/17 10:26; Admin Dose 100 MLS/HR; Start 03/12/17 at 11:00; Stop 03/14/17 at 12:05 DENY EL March 12, 2017 12:43
--- NOTE | 2017-03-12 15:10 | RADRPT ---
PROCEDURE: MRCP. CLINICAL INDICATION: Abdominal pain. Elevated lipase. TECHNIQUE: MRCP was performed on the a high-resolution, high Ewa field strength scanner. Patien t was examined without contrast. 3-D coronal rotating MIP images of the biliary tree are available for review. COMPARISON: Ultrasound from 03/09/2017. CT from 03/08/2017. FINDINGS: Gallbladder is unremarkable. The biliary tree is not dilated. No intrahepatic nor extrahepatic bili geo dilatation is present. No filling defect or choledocholithiasis is seen. There is no stricture o r obstruction. The pancreatic duct, as visualized, is equally unremarkable. The pancreatic tail is prominent and demonstrates mildly increased T2 signal with minimal peripancre atic fat stranding. The adjacent splenic flexure of the colon demonstrates wall edema and minimal p ericolonic fluid. Small simple appearing bilateral renal cysts are present. The right adrenal nodule seen on prior CT is not as evident on this exam. Otherwise, the liver, spleen, adrenal glands, kidneys, and stomach demonstrate normal signal intensity and morphology. The visualized bowel is unremarkable. IMPRESSION: 1. Focally prominent pancreatic tail with increased T2 signal and minimal surrounding inflammatory change, consistent with focal acute pancreatitis. There is also likely associated reactive inflamma tory change of the splenic flexure of the colon. 2. Simple appearing bilateral renal cyst. 3. Otherwise, unremarkable exam. RPTAT: EE .Ryne Garner MD, MD Date Time Electronically viewed and signed by .Ryne Garner MD, MD on 03/12/2017 15:09 .A/
[2017-03-12 20:08] VITALS: BP 147/77; RESP 20
[2017-03-12] MEDS: ATORVASTATIN 20 MG TAB PO SCH (21:17)
[2017-03-12] MEDS: TAMSULOSIN (SR) 0.4 MG CAP PO SCH (21:17)
[2017-03-13] VITALS (11 sets, daily range): BP systolic 133–150; BP diastolic 62–84; PULSE 66–77; RESP 15–21
[2017-03-13] MEDS: SOD CHLORIDE 0.9% 1,000 ML IV SCH ×2 (00:23→06:50)
[2017-03-13] MEDS: INSULIN ASPART [NOVOLOG] 3 ML PEN SC SCH ×6 (01:00→21:00)
[2017-03-13] MEDS: PANTOPRAZOLE 40 MG INJ IV SCH ×2 (05:42→18:00)
[2017-03-13] MEDS: PIPER-TAZO 3.375 GM IV (PMX) 100 ML IVPB SCH ×3 (05:43→21:51)
[2017-03-13 06:01] LABS: ADD SCAN DIFF NO
[2017-03-13 06:16] LABS: BASOPHIL # 0.1 10^3/ul (0.0-0.1); BASOPHILS % 0.6 % (0.0-2.0); EOSINOPHILS # 0.4 10^3/ul (0.0-0.5); EOSINOPHILS % 4.1 % (0.0-7.0); HEMATOCRIT 34.4 % (42.0-52.0); HEMOGLOBIN 11.7 g/dl (14.0-18.0); LYMPHOCYTES % 23.7 % (15.0-51.0); MEAN CORPUSCULAR HEMOGLOBIN 29.7 pg (29.0-33.0); MEAN CORPUSCULAR VOLUME 87.3 fl (82.0-101.0); MEAN PLATELET VOLUME 9.9 fl (7.4-10.4); MONOCYTE # 0.8 10^3/ul (0.3-0.9); MONOCYTES % 9.6 % (0.0-11.0); NEUTROPHIL # 5.3 10^3/ul (1.6-7.5); NEUTROPHILS % 61.5 % (39.0-77.0); PLATELET COUNT 284 10^3/UL (140-415); RED BLOOD COUNT 3.94 10^6/ul (4.70-6.10); WHITE BLOOD COUNT 8.6 10^3/ul (4.8-10.8)
[2017-03-13 06:33] LABS: INR 1.19; PROTIME 15.2 Sec (12.2-14.2); PT RATIO 1.2
[2017-03-13 06:38] LABS: MAGNESIUM 1.8 mg/dl (1.7-2.5); PARTIAL THROMBOPLASTIN TIME 31.8 Sec (25.0-35.0)
[2017-03-13 06:59] LABS: ALBUMIN 3.3 g/dl (3.3-4.9); ALBUMIN/GLOBULIN RATIO 1.03; BILIRUBIN,INDIRECT 0.3 mg/dl (0-1.1); BILIRUBIN,TOTAL 0.3 mg/dl (0.2-1.3); CALCIUM 8.7 mg/dl (8.4-10.2); CREATININE 0.63 mg/dl (0.61-1.24); POTASSIUM 3.7 mmol/L (3.5-5.1); TOTAL PROTEIN 6.5 g/dl (6.1-8.1)
[2017-03-13] MEDS: LISINOPRIL 10 MG TAB PO SCH (09:27)
[2017-03-13] MEDS: SOD FERRIC GLUC COMPLX 125 MG in SOD CHLORIDE 0.9% 100 ML IVPB SCH (11:07)
--- NOTE | 2017-03-13 13:33 | PN ---
Date/Time of Note Date/Time of Note DATE: 03/13/17 TIME: 13:29 Assessment/Plan VTE Prophylaxis VTE Prophylaxis Intervention: SCD's Lines/Catheters IV [facility]ter [facility]from [facility] Peripheral IV Urinary Cath still in place: No Assessment/Plan Chief Complaint/Hosp Course Assessment and plan: 1. Acute pancreatitis. Etiology unclear. The patient is not a drinker. The patient has no evidence of any hypertriglyceridemia or gallstones. The patient will be maintained on bowel rest. The on empiric antibiotics because of febrile illness. The patient's CT scan did not show any evidence of pancreatic pseudocyst. Cephalometric Technician has been consulted. Follow-up GI recommendation , follow-up lipase level in a.m. 2. Melena. No onset on 03/12/2017. Hemoglobin and hematocrit has been stable. Will transfuse as needed. Plan for EGD today 3. Type 2 diabetes mellitus. Hemoglobin A1c is 6.6. The patient will be continued on sliding scale insulin. 4. Incidental adrenal adenoma. The patient being followed by Endocrinology. 5. Impotence. The patient being followed by endocrinology. 6. Dyslipidemia. Continue statins. 6. Essential hypertension. Continue antihypertensives. 7. Benign prostatic hypertrophy. The patient will be continued on alpha-1 antagonists. 8. Normocytic, normochromic anemia. Iron panel showing iron deficiency. Continue iron supplements. 9. Deep venous thrombosis prophylaxis with bilateral sequential compression devices. 10. Gastrointestinal prophylaxis. Proton pump inhibitors. Plan. Continue n.p.o. Continue pain medications. Continue empiric antibiotics and iron supplements. Plan for upper EGD today. Plan to discharge home Monday03/15/2017 if clear as gastroenterology standpoint Problems: Subjective 24 Hr Interval Summary Free Text/Dictation Patient denies of any chest pain or shortness of breath Denies of any abdominal discomfort No nausea vomiting diarrhea Waiting for upper endoscopy procedure All the questions were answered at the bedside Exam/Review of Systems Vital Signs Vitals Vital Signs Date Time Temp Pulse Resp B/P Pulse Ox O2 Delivery O2 Flow Rate FiO2 03/13/17 08:01 98.0 78 18 137/70 96 03/12/17 06:30 Room Air Intake and Output 03/12/17 03/12/17 03/13/17 15:00 23:00 07:00 Intake Total 2710 ml 2400 ml Output Total 150 ml 1100 ml Balance -150 ml 2710 ml 1300 ml Exam General: The patient is well-developed, Not in acute distress. HEENT: Atraumatic, normocephalic. The pupils are equal and round . Neck: Supple with full range of motion. Chest: Normal expansion of the thorax during inspiration Lungs: Clear to auscultation bilaterally Heart: Normal S1-S2, Regular rhythm and rate. Abdomen: Soft , nontender, nondistended , bowel sounds are present. Extremities: Normal to inspection, no edema no cyanosis Neurologic: Normal mental status,The patient is awake, alert and oriented . Results Result Diagram: 03/13/17 0537 03/13/17 0537 Results 24 hrs Laboratory Tests Test 03/12/17 13:30 03/12/17 17:22 03/12/17 21:16 03/13/17 01:02 Bedside Glucose 109 102 90 92 Test 03/13/17 05:37 03/13/17 05:39 03/13/17 09:26 03/13/17 13:03 White Blood Count 8.6 Red Blood Count 3.94 L Hemoglobin 11.7 L Hematocrit 34.4 L Mean Corpuscular Volume 87.3 Mean Corpuscular Hemoglobin 29.7 Mean Corpuscular Hemoglobin Concent 34.0 Red Cell Distribution Width 12.0 Platelet Count 284 Mean Platelet Volume 9.9 Neutrophils % 61.5 Lymphocytes % 23.7 Monocytes % 9.6 Eosinophils % 4.1 Basophils % 0.6 Nucleated Red Blood Cells % 0.0 Neutrophils # 5.3 Lymphocytes # 2.0 Monocytes # 0.8 Eosinophils # 0.4 Basophils # 0.1 Nucleated Red Blood Cells # 0.0 Prothrombin Time 15.2 H Prothrombin Time Ratio 1.2 INR International Normalized Ratio 1.19 Activated Partial Thromboplast Time 31.8 Sodium Level 137 Potassium Level 3.7 Chloride Level 105 Carbon Dioxide Level 22 Anion Gap 14 Blood Urea Nitrogen 7 Creatinine 0.63 Glucose Level 89 Calcium Level 8.7 Phosphorus Level 4.0 Magnesium Level 1.8 Total Bilirubin 0.3 Direct Bilirubin 0.00 Indirect Bilirubin 0.3 Aspartate Amino Transf (AST/SGOT) 20 Alanine Aminotransferase (ALT/SGPT) 31 Alkaline Phosphatase 58 Total Protein 6.5 Albumin 3.3 Globulin 3.20 Albumin/Globulin Ratio 1.03 Amylase Level 138 H Lipase 787 H Bedside Glucose 89 85 79 Medications Medications Current Medications Sodium Chloride (NS) 1,000 ml @ 150 mls/hr Q6H40M IV Last administered on 06:50; Admin Dose 150 MLS/HR; Start 03/09/17 at 02:52 Ondansetron HCl (Zofran Inj) 4 mg Q6H PRN IV NAUSEA AND/OR VOMITING; Start 03/09 at 03:00 Hydromorphone HCl (Dilaudid) 0.5 mg Q4H PRN IV PAIN LEVEL 7-10; Start 03/09/17 at 03:00 Atorvastatin Calcium (Lipitor) 20 mg QHS PO Last administered on 03/12/17 21:17 ; Admin Dose 20 MG; Start 03/09/17 at 21:00 Lisinopril (Zestril) 10 mg DAILY PO Last administered on 03/13/17 09:27; Admin Dose 10 MG; Start 03/09/17 at 09:00 Insulin Aspart (Novolog Insulin Pen) NOVOLOG *MILD* ALGORITHM Q4 SC ; Start 03/09 at 13:00 Miscellaneous Information 1 ea NOTE XX ; Start 03/09/17 at 11:30 Glucose (Glutose) 15 gm Q15M PRN PO DECREASED GLUCOSE; Start 03/09/17 at 11:30 Glucose (Glutose) 22.5 gm Q15M PRN PO DECREASED GLUCOSE; Start 03/09/17 at 11:30 Dextrose (D50w Syringe) 25 ml Q15M PRN IV DECREASED GLUCOSE; Start 03/09/17 at 11:30 Dextrose (D50w Syringe) 50 ml Q15M PRN IV DECREASED GLUCOSE; Start 03/09/17 at 11:30 Glucagon (Glucagen) 1 mg Q15M PRN IM DECREASED GLUCOSE; Start 03/09/17 at 11:30 Glucose (Glutose) 15 gm Q15M PRN BUCCAL DECREASED GLUCOSE; Start 03/09/17 at 11: 30 Acetaminophen 650 mg 650 mg Q6H PRN PO PAIN AND OR ELEVATED TEMP Last administered on 03/10/17 00:32; Admin Dose 650 MG; Start 03/10/17 at 00:30 Piperacillin Sod/ Tazobactam Sod (Zosyn 3.375gm/ 100 ml (Pmx)) 100 ml @ 200 mls /hr Q8 IVPB Last administered on 03/13/17 05:43; Admin Dose 200 MLS/HR; Start 03/10/17 at 14:00 Tamsulosin HCl 0.4 mg 0.4 mg HS PO Last administered on 03/12/17 21:17; Admin Dose 0.4 MG; Start 03/10/17 at 21:00 Ferric Sodium Gluconate Complex/ Sodium Chloride (Ferrlecit/NS) 110 ml @ 100 mls/hr Q24H IVPB Last administered on 03/13/17 11:07; Admin Dose 100 MLS/HR; Start 03/12/17 at 11:00; Stop 03/14/17 at 12:05 Pantoprazole (Protonix Iv) 40 mg BID@06,18 IV Last administered on 03/13/17 05: 42; Admin Dose 40 MG; Start 03/12/17 at 18:00 MAGGIE BRANDON MD March 13, 2017 13:33
[2017-03-13] MEDS: D5W-0.45 NACL + KCL 20 MEQ 1,000 ML IV SCH (14:07)
[2017-03-13] MEDS ORDERED: PROPOFOL 20 ML ONE (19:24)
[2017-03-13] MEDS: TAMSULOSIN (SR) 0.4 MG CAP PO SCH (21:51)
[2017-03-14] MEDS: INSULIN ASPART [NOVOLOG] 3 ML PEN SC SCH ×5 (01:00→21:00)
[2017-03-14] MEDS ORDERED: GLUCOSE GEL 15 GRAM TUBE PO PRN ×2 (01:30)
[2017-03-14] MEDS ORDERED: GLUCOSE GEL 15 GRAM TUBE BUCCAL PRN (01:30)
[2017-03-14] MEDS ORDERED: DEXTROSE 50% 50 ML SYRINGE IV PRN ×2 (01:30)
[2017-03-14] MEDS ORDERED: GLUCAGON 1 MG INJ IM PRN (01:30)
[2017-03-14] MEDS: ACCU-CHEK XX SCH (02:00)
[2017-03-14] MEDS: D5W-0.45 NACL + KCL 20 MEQ 1,000 ML IV SCH ×2 (03:20→05:27)
[2017-03-14] MEDS: PANTOPRAZOLE 40 MG INJ IV SCH ×2 (05:27→17:15)
[2017-03-14] MEDS: PIPER-TAZO 3.375 GM IV (PMX) 100 ML IVPB SCH ×3 (05:27→21:33)
[2017-03-14 06:08] LABS: ADD SCAN DIFF NO
[2017-03-14 06:13] LABS: BASOPHIL # 0.1 10^3/ul (0.0-0.1); BASOPHILS % 0.7 % (0.0-2.0); EOSINOPHILS # 0.3 10^3/ul (0.0-0.5); EOSINOPHILS % 4.4 % (0.0-7.0); HEMATOCRIT 35.8 % (42.0-52.0); HEMOGLOBIN 12.2 g/dl (14.0-18.0); LYMPHOCYTES # 1.9 10^3/ul (0.8-2.9); LYMPHOCYTES % 25.7 % (15.0-51.0); MEAN CORPUSCULAR HEMOGLOBIN 29.5 pg (29.0-33.0); MEAN CORPUSCULAR HGB CONC 34.1 g/dl (32.0-37.0); MEAN CORPUSCULAR VOLUME 86.5 fl (82.0-101.0); MEAN PLATELET VOLUME 9.9 fl (7.4-10.4); MONOCYTE # 0.7 10^3/ul (0.3-0.9); MONOCYTES % 9.6 % (0.0-11.0); NEUTROPHIL # 4.3 10^3/ul (1.6-7.5); NEUTROPHILS % 59.3 % (39.0-77.0); PLATELET COUNT 324 10^3/UL (140-415); RED BLOOD COUNT 4.14 10^6/ul (4.70-6.10); RED CELL DISTRIBUTION WIDTH 12.1 % (11.5-14.5); WHITE BLOOD COUNT 7.3 10^3/ul (4.8-10.8)
[2017-03-14 07:29] VITALS: BP 122/71; RESP 18
[2017-03-14 07:44] LABS: ALBUMIN 3.5 g/dl (3.3-4.9); ALBUMIN/GLOBULIN RATIO 1.06; BILIRUBIN,INDIRECT 0.3 mg/dl (0-1.1); BILIRUBIN,TOTAL 0.3 mg/dl (0.2-1.3); CREATININE 0.62 mg/dl (0.61-1.24); MAGNESIUM 1.9 mg/dl (1.7-2.5); POTASSIUM 3.6 mmol/L (3.5-5.1); TOTAL PROTEIN 6.8 g/dl (6.1-8.1)
[2017-03-14] MEDS: LISINOPRIL 10 MG TAB PO SCH (08:57)
[2017-03-14] MEDS: SOD FERRIC GLUC COMPLX 125 MG in SOD CHLORIDE 0.9% 100 ML IVPB SCH (11:43)
--- NOTE | 2017-03-14 12:22 | GILP ---
DATE OF PROCEDURE: 03/13/2017 NAME OF PROCEDURE: Esophagogastroduodenoscopy with biopsies. SURGEON: Jacquie Avalos MD. PREMEDICATION: Monitored anesthesia care by anesthesiologist. INSTRUMENT USED: Olympus panendoscope. TECHNIQUE: After informed consent, with the patient/relatives understanding the procedure, its indic ations, potential risks and complications, including but not limited to: allergic reaction, bleeding , perforation or infection, and after all pertinent questions were answered to the patients satisfac tion, the patient/relatives signed witnessed informed consent. Following this, premedication was administered slowly IV push under careful cardiovascular and respi ratory monitoring with pulse oximetry, automatic blood pressure and monitoring engineer. Once the sedative effect was achieved the patient was place in the left lateral decubitus, the panen doscope was introduced and advanced under visual control. Careful examination of the upper gastrointestinal tract, both on insertion as well as withdrawal of the instrument disclosed the following findings: ESOPHAGUS: The mucosa of the entire esophagus appears within normal limits. There is no evidence of esophagitis, varices, neoplasm or stricture. No hiatal hernia identified. STOMACH: Upon entrance to the stomach air was insufflated, the gastric echavarria distended normally. Th ere is erythema and edema of the mucosa of a moderate degree. No bleeding site is identified. Biop sies were obtained in limited fashion to rule out H. pylori infection. PYLORUS: The pylorus appears patent and within normal limits, with no evidence of gastric outlet obs truction. DUODENUM: The duodenal mucosa was carefully examined in the duodenal bulb as well as the second port ion of the duodenum and appears unremarkable with no evidence of duodenitis, ulcer or neoplasm. The instrument was then withdrawn, the patient tolerated the procedure well and was transfer out of the endoscopy suite awake, and in good condition to continue recovery under observation. IMPRESSION: Moderate gastritis. Rule out Helicobacter pylori infection. Biopsies were obtained. RECOMMENDATIONS: Proton pump inhibitor therapy. Pathology will be reviewed as soon as it is avail able. Further recommendations will depend on the patient's clinical course. Dictated By: JACQUIE AVALOS MS/ZAINAB Conf#: [id number] DID#: [id number] CC: JACQUIE AVALOS;*EndCC*
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
--- NOTE | 2017-03-14 13:59 | PN ---
Date/Time of Note Date/Time of Note DATE: 03/14/17 TIME: 13:58 Assessment/Plan VTE Prophylaxis VTE Prophylaxis Intervention: SCD's Lines/Catheters [facility] Peripheral IV Urinary Cath still in place: No Assessment/Plan Chief Complaint/Hosp Course Assessment and plan: 1. Acute pancreatitis. Etiology unclear. The patient is not a drinker. The patient has no evidence of any hypertriglyceridemia or gallstones. The patient will be maintained on bowel rest. The on empiric antibiotics because of febrile illness. The patient's CT scan did not show any evidence of pancreatic pseudocyst. Lute Packer Or Applier has been consulted. Follow-up GI recommendation , lipase level is improving significantly, follow-up lipase level in a.m. 2. Melena. No onset on 03/12/2017. Hemoglobin and hematocrit has been stable. Status post EGD with no evidence of active bleeding 3. Type 2 diabetes mellitus. Hemoglobin A1c is 6.6. The patient will be continued on sliding scale insulin. 4. Incidental adrenal adenoma. The patient being followed by Endocrinology. 5. Impotence. The patient being followed by endocrinology. 6. Dyslipidemia. Continue statins. 6. Essential hypertension. Continue antihypertensives. 7. Benign prostatic hypertrophy. The patient will be continued on alpha-1 antagonists. 8. Normocytic, normochromic anemia. Iron panel showing iron deficiency. Continue iron supplements. 9. Deep venous thrombosis prophylaxis with bilateral sequential compression devices. 10. Gastrointestinal prophylaxis. Proton pump inhibitors. Plan. Continue n.p.o. Continue pain medications. Continue empiric antibiotics and iron supplements. Plan for upper EGD today. Plan to discharge home Monday03/15/2017 if clear as gastroenterology standpoint Problems: Subjective 24 Hr Interval Summary Free Text/Dictation Patient denies any chest pain or shortness of breath Denies of having any abdominal discomfort No nausea vomiting diarrhea Tolerating clear liquid diet Exam/Review of Systems Vital Signs Vitals Vital Signs Date Time Temp Pulse Resp B/P Pulse Ox O2 Delivery O2 Flow Rate FiO2 03/14/17 07:29 98.3 75 18 122/71 96 03/13/17 20:21 Room Air Intake and Output 03/13/17 03/13/17 03/14/17 15:00 23:00 07:00 Intake Total 1110 ml 250 ml 500 ml Output Total 200 ml Balance 1110 ml 50 ml 500 ml Exam General: The patient is well-developed, Not in acute distress. HEENT: Atraumatic, normocephalic. The pupils are equal and round . Neck: Supple with full range of motion. Chest: Normal expansion of the thorax during inspiration Lungs: Clear to auscultation bilaterally Heart: Normal S1-S2, Regular rhythm and rate. Abdomen: Soft , nontender, nondistended , bowel sounds are present. Extremities: Normal to inspection, no edema no cyanosis Neurologic: Normal mental status,The patient is awake, alert and oriented . Results Result Diagram: 03/14/17 0535 03/14/17 0535 Results 24 hrs Laboratory Tests Test 03/13/17 16:46 03/13/17 21:47 03/14/17 01:02 03/14/17 05:35 Bedside Glucose 111 94 108 White Blood Count 7.3 Red Blood Count 4.14 L Hemoglobin 12.2 L Hematocrit 35.8 L Mean Corpuscular Volume 86.5 Mean Corpuscular Hemoglobin 29.5 Mean Corpuscular Hemoglobin Concent 34.1 Red Cell Distribution Width 12.1 Platelet Count 324 Mean Platelet Volume 9.9 Neutrophils % 59.3 Lymphocytes % 25.7 Monocytes % 9.6 Eosinophils % 4.4 Basophils % 0.7 Nucleated Red Blood Cells % 0.0 Neutrophils # 4.3 Lymphocytes # 1.9 Monocytes # 0.7 Eosinophils # 0.3 Basophils # 0.1 Nucleated Red Blood Cells # 0.0 Sodium Level 136 Potassium Level 3.6 Chloride Level 103 Carbon Dioxide Level 24 Anion Gap 13 Blood Urea Nitrogen 5 L Creatinine 0.62 Glucose Level 136 # Calcium Level 9.0 Magnesium Level 1.9 Total Bilirubin 0.3 Direct Bilirubin 0.00 Indirect Bilirubin 0.3 Aspartate Amino Transf (AST/SGOT) 26 Alanine Aminotransferase (ALT/SGPT) 26 Alkaline Phosphatase 61 Total Protein 6.8 Albumin 3.5 Globulin 3.30 H Albumin/Globulin Ratio 1.06 Lipase 573 H Test 03/14/17 07:45 03/14/17 11:44 Bedside Glucose 130 201 Medications Medications Current Medications Ondansetron HCl (Zofran Inj) 4 mg Q6H PRN IV NAUSEA AND/OR VOMITING; Start 03/09 at 03:00 Hydromorphone HCl (Dilaudid) 0.5 mg Q4H PRN IV PAIN LEVEL 7-10; Start 03/09/17 at 03:00 Lisinopril (Zestril) 10 mg DAILY PO Last administered on 03/14/17 08:57; Admin Dose 10 MG; Start 03/09/17 at 09:00 Acetaminophen 650 mg 650 mg Q6H PRN PO PAIN AND OR ELEVATED TEMP Last administered on 03/10/17 00:32; Admin Dose 650 MG; Start 03/10/17 at 00:30 Piperacillin Sod/ Tazobactam Sod (Zosyn 3.375gm/ 100 ml (Pmx)) 100 ml @ 200 mls /hr Q8 IVPB Last administered on 03/14/17 13:34; Admin Dose 200 MLS/HR; Start 03/10/17 at 14:00 Tamsulosin HCl (Flomax) 0.4 mg HS PO Last administered on 03/13/17 21:51; Admin Dose 0.4 MG; Start 03/10/17 at 21:00 Pantoprazole 40 mg 40 mg BID@06,18 IV Last administered on 03/14/17 05:27; Admin Dose 40 MG; Start 03/12/17 at 18:00 Potassium Chloride/Dextrose/ Sod Cl (D5-1/2ns + KCl 20 Meq) 1,000 ml @ 75 mls/ hr [id number] IV Last administered on 03/14/17 05:27; Admin Dose 75 MLS/HR; Start 03/13/17 at 14:00 Diagnostic Test (Pha) (Accu-Chek) 1 ea 02 XX ; Start 03/14/17 at 02:00 Miscellaneous Information 1 ea NOTE XX ; Start 03/14/17 at 01:30 Glucose (Glutose) 15 gm Q15M PRN PO DECREASED GLUCOSE; Start 03/14/17 at 01:30 Glucose (Glutose) 22.5 gm Q15M PRN PO DECREASED GLUCOSE; Start 03/14/17 at 01:30 Dextrose (D50w Syringe) 25 ml Q15M PRN IV DECREASED GLUCOSE; Start 03/14/17 at 01:30 Dextrose (D50w Syringe) 50 ml Q15M PRN IV DECREASED GLUCOSE; Start 03/14/17 at 01:30 Glucagon (Glucagen) 1 mg Q15M PRN IM DECREASED GLUCOSE; Start 5/9/17 at 01:30 Glucose (Glutose) 15 gm Q15M PRN BUCCAL DECREASED GLUCOSE; Start 03/14/17 at 01: 30 MAGGIE BRANDON MD March 14, 2017 13:59
--- NOTE | 2017-03-14 15:17 | PN ---
Date/Time of Note Date/Time of Note DATE: 03/14/17 TIME: 15:12 Assessment/Plan VTE Prophylaxis VTE Prophylaxis Intervention: SCD's Lines/Catheters [facility] ([facility]): Peripheral IV Urinary Cath still in place: No Assessment/Plan Assessment/Plan Assessment * Melena EGD 03/13/2016 Moderate gastritis. Rule out Helicobacter pylori infection. Biopsies were obtained. * Diabetes mellitus * Adrenal mass by ct scan Plan * continue ppi for 2 weeks * stable for outpatient management Subjective 24 Hr Interval Summary Free Text/Dictation * Course reviewed with RN * patient seen and examined * Denies abdominal pain,no melena * EGD 03/13/2017 Moderate gastritis. Rule out Helicobacter pylori infection. Biopsies were obtained. Exam/Review of Systems Vital Signs Vitals Vital Signs Date Time Temp Pulse Resp B/P Pulse Ox O2 Delivery O2 Flow Rate FiO2 03/14/17 07:29 98.3 75 18 122/71 96 03/13/17 20:21 Room Air Intake and Output 03/13/17 03/13/17 03/14/17 15:00 23:00 07:00 Intake Total 1110 ml 250 ml 500 ml Output Total 200 ml Balance 1110 ml 50 ml 500 ml Exam Constitutional: alert, oriented Psych: no complaints Neck: non-tender, supple Respiratory: clear to auscultation, normal air movement Cardiovascular: nl pulses, regular rate and rhythm Gastrointestinal: non-tender, soft, No rebound or guarding Musculoskeletal: nl extremities to inspection, nl gait and stance Extremities: normal pulses Neurological: nl speech Results Result Diagram: 03/14/17 0535 03/14/17 0535 Results 24 hrs Laboratory Tests Test 03/13/17 16:46 03/13/17 21:47 03/14/17 01:02 03/14/17 05:35 Bedside Glucose 111 94 108 White Blood Count 7.3 Red Blood Count 4.14 L Hemoglobin 12.2 L Hematocrit 35.8 L Mean Corpuscular Volume 86.5 Mean Corpuscular Hemoglobin 29.5 Mean Corpuscular Hemoglobin Concent 34.1 Red Cell Distribution Width 12.1 Platelet Count 324 Mean Platelet Volume 9.9 Neutrophils % 59.3 Lymphocytes % 25.7 Monocytes % 9.6 Eosinophils % 4.4 Basophils % 0.7 Nucleated Red Blood Cells % 0.0 Neutrophils # 4.3 Lymphocytes # 1.9 Monocytes # 0.7 Eosinophils # 0.3 Basophils # 0.1 Nucleated Red Blood Cells # 0.0 Sodium Level 136 Potassium Level 3.6 Chloride Level 103 Carbon Dioxide Level 24 Anion Gap 13 Blood Urea Nitrogen 5 L Creatinine 0.62 Glucose Level 136 # Calcium Level 9.0 Magnesium Level 1.9 Total Bilirubin 0.3 Direct Bilirubin 0.00 Indirect Bilirubin 0.3 Aspartate Amino Transf (AST/SGOT) 26 Alanine Aminotransferase (ALT/SGPT) 26 Alkaline Phosphatase 61 Total Protein 6.8 Albumin 3.5 Globulin 3.30 H Albumin/Globulin Ratio 1.06 Lipase 573 H Test 03/14/17 07:45 03/14/17 11:44 Bedside Glucose 130 201 Medications Medications Current Medications Ondansetron HCl (Zofran Inj) 4 mg Q6H PRN IV NAUSEA AND/OR VOMITING; Start 03/09 at 03:00 Hydromorphone HCl (Dilaudid) 0.5 mg Q4H PRN IV PAIN LEVEL 7-10; Start 03/09/17 at 03:00 Lisinopril (Zestril) 10 mg DAILY PO Last administered on 03/14/17 08:57; Admin Dose 10 MG; Start 03/09/17 at 09:00 Acetaminophen 650 mg 650 mg Q6H PRN PO PAIN AND OR ELEVATED TEMP Last administered on 03/10/17 00:32; Admin Dose 650 MG; Start 03/10/17 at 00:30 Piperacillin Sod/ Tazobactam Sod (Zosyn 3.375gm/ 100 ml (Pmx)) 100 ml @ 200 mls /hr Q8 IVPB Last administered on 03/14/17 13:34; Admin Dose 200 MLS/HR; Start 03/10/17 at 14:00 Tamsulosin HCl (Flomax) 0.4 mg HS PO Last administered on 03/13/17 21:51; Admin Dose 0.4 MG; Start 03/10/17 at 21:00 Pantoprazole (Protonix Iv) 40 mg BID@06,18 IV Last administered on 03/14/17 05: 27; Admin Dose 40 MG; Start 03/12/17 at 18:00 Diagnostic Test (Pha) (Accu-Chek) 1 ea 02 XX ; Start 03/14/17 at 02:00 Miscellaneous Information 1 ea NOTE XX ; Start 03/14/17 at 01:30 Glucose (Glutose) 15 gm Q15M PRN PO DECREASED GLUCOSE; Start 03/14/17 at 01:30 Glucose (Glutose) 22.5 gm Q15M PRN PO DECREASED GLUCOSE; Start 03/14/17 at 01:30 Dextrose (D50w Syringe) 25 ml Q15M PRN IV DECREASED GLUCOSE; Start 03/14/17 at 01:30 Dextrose (D50w Syringe) 50 ml Q15M PRN IV DECREASED GLUCOSE; Start 03/14/17 at 01:30 Glucagon (Glucagen) 1 mg Q15M PRN IM DECREASED GLUCOSE; Start 03/14/17 at 01:30 Glucose (Glutose) 15 gm Q15M PRN BUCCAL DECREASED GLUCOSE; Start 03/14/17 at 01: 30 JACQUIE KRAUS MD March 14, 2017 15:17
[2017-03-14 19:21] VITALS: BP 143/67; RESP 20
[2017-03-14] MEDS: TAMSULOSIN (SR) 0.4 MG CAP PO SCH (21:06)
[2017-03-15] MEDS: ACCU-CHEK XX SCH (01:08)
[2017-03-15] MEDS: PIPER-TAZO 3.375 GM IV (PMX) 100 ML IVPB SCH ×2 (05:44→13:31)
[2017-03-15] MEDS: PANTOPRAZOLE 40 MG INJ IV SCH (05:44)
[2017-03-15 05:48] LABS: ADD SCAN DIFF NO
[2017-03-15 05:53] LABS: BASOPHIL # 0.1 10^3/ul (0.0-0.1); BASOPHILS % 0.8 % (0.0-2.0); EOSINOPHILS # 0.3 10^3/ul (0.0-0.5); EOSINOPHILS % 3.7 % (0.0-7.0); HEMATOCRIT 35.7 % (42.0-52.0); HEMOGLOBIN 12.4 g/dl (14.0-18.0); MEAN CORPUSCULAR HEMOGLOBIN 30.1 pg (29.0-33.0); MEAN CORPUSCULAR HGB CONC 34.7 g/dl (32.0-37.0); MEAN CORPUSCULAR VOLUME 86.7 fl (82.0-101.0); MEAN PLATELET VOLUME 9.7 fl (7.4-10.4); MONOCYTE # 0.9 10^3/ul (0.3-0.9); MONOCYTES % 10.3 % (0.0-11.0); NEUTROPHIL # 5.3 10^3/ul (1.6-7.5); NEUTROPHILS % 61.8 % (39.0-77.0); PLATELET COUNT 361 10^3/UL (140-415); RED BLOOD COUNT 4.12 10^6/ul (4.70-6.10); WHITE BLOOD COUNT 8.6 10^3/ul (4.8-10.8)
[2017-03-15 06:23] LABS: ALBUMIN 3.5 g/dl (3.3-4.9)
[2017-03-15 06:24] LABS: POTASSIUM 3.4 mmol/L (3.5-5.1)
[2017-03-15 06:26] LABS: BILIRUBIN,INDIRECT 0.2 mg/dl (0-1.1); BILIRUBIN,TOTAL 0.2 mg/dl (0.2-1.3); CREATININE 0.68 mg/dl (0.61-1.24)
[2017-03-15 08:00] VITALS: BP 114/68; RESP 20
[2017-03-15] MEDS: INSULIN ASPART [NOVOLOG] 3 ML PEN SC SCH ×2 (08:15→12:08)
--- NOTE | 2017-03-15 08:34 | CONS ---
Date/Time of Note Date/Time of Note DATE: 03/15/17 TIME: 08:32 Assessment/Plan Assessment/Plan Chief Complaint/Hosp Course 56-year-old [place] gentleman admitted with acute pancreatitis. In his evaluation is found to have a 11 mm right adrenal nodule which the radiologist stated by Flor this was consistent with an adenoma. There is a history of hypertension but without lability or headaches. There is no prior history of peptic ulcer disease dyspepsia etc. Curiously there is a history of a change in skin color. He had presented to this hospital's emergency room and was diagnosed as having melasma. He is seen by an outside ore dryer and the family reports there was told this was due to sunburn. There is no hyperpigmentation elsewhere on the patient's skin according to the patient and his it is limited to his face only. He has no known history of endocrinopathy outside of diabetes mellitus type 2 treated with single agent therapy. Problems: (1) Adrenal mass, right Status: Acute Comment: This is a very small nodule 1.1 cm with low Hounsfield unit on CT scanning. Hormonal evaluation presently is unremarkable. Pending are the catecholamines. If we assume that those are normal that he does not need anything done with this except a repeat CT scan of the abdomen a roughly 12-18 months to verify stability in size. Please note that the incidence of small adrenal nodules that are benign in patients over the age of 45 years is 4-5% of the [place] population. I will wait for the results to come back the right now have no specific therapeutic recommendations or interventions Consultation Date/Type/Reason Admit Date/Time March 09, 2017 at 00:36 Initial Consult Date 03/12/17 Type of Consultation: Endocrinology Referring Provider: SHAWNA CASTREJON NP 24 HR Interval Summary Free Text/Dictation Patient reports he is feeling better. Please note endocrine review of systems negative Exam/Review of Systems Vital Signs Vitals Vital Signs Date Time Temp Pulse Resp B/P Pulse Ox O2 Delivery O2 Flow Rate FiO2 03/15/17 08:00 98.5 70 20 114/68 95 03/13/17 20:21 Room Air Intake and Output 03/14/17 03/14/17 03/15/17 15:00 23:00 07:00 Intake Total 835 ml 1100 ml 300 ml Balance 835 ml 1100 ml 300 ml Exam Constitutional: alert, oriented Neck: non-tender, supple Skin: other (Facial hyperpigmentation no changes) Results Result Diagram: 03/15/1714 03/15/1714 Results 24 hrs Laboratory Tests Test 03/14/17 11:44 03/14/17 17:14 03/14/17 21:04 03/15/17 05:14 Bedside Glucose 201 122 131 White Blood Count 8.6 Red Blood Count 4.12 L Hemoglobin 12.4 L Hematocrit 35.7 L Mean Corpuscular Volume 86.7 Mean Corpuscular Hemoglobin 30.1 Mean Corpuscular Hemoglobin Concent 34.7 Red Cell Distribution Width 12.0 Platelet Count 361 Mean Platelet Volume 9.7 Neutrophils % 61.8 Lymphocytes % 23.0 Monocytes % 10.3 Eosinophils % 3.7 Basophils % 0.8 Nucleated Red Blood Cells % 0.0 Neutrophils # 5.3 Lymphocytes # 2.0 Monocytes # 0.9 Eosinophils # 0.3 Basophils # 0.1 Nucleated Red Blood Cells # 0.0 Sodium Level 144 Potassium Level 3.4 L Chloride Level 101 Carbon Dioxide Level 28 Anion Gap 18 H Blood Urea Nitrogen 4 L Creatinine 0.68 Glucose Level 134 Calcium Level 9.0 Total Bilirubin 0.2 Direct Bilirubin 0.00 Indirect Bilirubin 0.2 Aspartate Amino Transf (AST/SGOT) 22 Alanine Aminotransferase (ALT/SGPT) 28 Alkaline Phosphatase 57 Total Protein 7.0 Albumin 3.5 Globulin 3.50 H Albumin/Globulin Ratio 1.00 Lipase 552 H Test 03/15/17 08:13 Bedside Glucose 119 Medications Medications Current Medications Ondansetron HCl (Zofran Inj) 4 mg Q6H PRN IV NAUSEA AND/OR VOMITING; Start 03/09 at 03:00 Hydromorphone HCl (Dilaudid) 0.5 mg Q4H PRN IV PAIN LEVEL 7-10; Start 03/09/17 at 03:00 Lisinopril (Zestril) 10 mg DAILY PO Last administered on 03/14/17 08:57; Admin Dose 10 MG; Start 03/09/17 at 09:00 Acetaminophen 650 mg 650 mg Q6H PRN PO PAIN AND OR ELEVATED TEMP Last administered on 03/10/17 00:32; Admin Dose 650 MG; Start 03/10/17 at 00:30 Piperacillin Sod/ Tazobactam Sod (Zosyn 3.375gm/ 100 ml (Pmx)) 100 ml @ 200 mls /hr Q8 IVPB Last administered on 03/15/17 05:44; Admin Dose 200 MLS/HR; Start 03/10/17 at 14:00 Tamsulosin HCl (Flomax) 0.4 mg HS PO Last administered on 03/14/17 21:06; Admin Dose 0.4 MG; Start 03/10/17 at 21:00 Pantoprazole (Protonix Iv) 40 mg BID@06,18 IV Last administered on 03/15/17 05 :44; Admin Dose 40 MG; Start 03/12/17 at 18:00 Diagnostic Test (Pha) (Accu-Chek) 1 ea 02 XX ; Start 03/14/17 at 02:00 Miscellaneous Information 1 ea NOTE XX ; Start 03/14/17 at 01:30 Glucose (Glutose) 15 gm Q15M PRN PO DECREASED GLUCOSE; Start 03/14/17 at 01:30 Glucose (Glutose) 22.5 gm Q15M PRN PO DECREASED GLUCOSE; Start 03/14/17 at 01:30 Dextrose (D50w Syringe) 25 ml Q15M PRN IV DECREASED GLUCOSE; Start 03/14/17 at 01:30 Dextrose (D50w Syringe) 50 ml Q15M PRN IV DECREASED GLUCOSE; Start 03/14/17 at 01:30 Glucagon (Glucagen) 1 mg Q15M PRN IM DECREASED GLUCOSE; Start 03/14/17 at 01:30 Glucose (Glutose) 15 gm Q15M PRN BUCCAL DECREASED GLUCOSE; Start 03/14/17 at 01: 30 PATRICK ROQUE MD March 15, 2017 08:34
[2017-03-15] MEDS: LISINOPRIL 10 MG TAB PO SCH (09:00)
--- NOTE | 2017-03-15 10:53 | PDOCDIS ---
Discharge Instructions CONDITION Patient Condition: Good HOME CARE INSTRUCTIONS: Special Diet: FULL LIQUID and advance to soft diet as tolerated ACTIVITY: Activity Restrictions: Slowly Increase Activity Rest between Activity Avoid heavy lifting Avoid Heavy Housework FOLLOW UP/APPOINTMENTS Appointments Follow-up with primary care physician as outpatient Follow with personnel coordinator in 1-2 weeks MAGGIE BRANDON MD March 15, 2017 10:53
[2017-03-15] MEDS ORDERED: ONDA4TAB8 PO (10:55)
[2017-03-15] MEDS ORDERED: TAMS-14 PO (10:55)
[2017-03-15] MEDS ORDERED: CEPH500C PO (10:55)
[2017-03-15] MEDS ORDERED: FER325 PO (11:11)
--- NOTE | 2017-03-15 15:13 | PN ---
Date/Time of Note Date/Time of Note DATE: 03/15/17 TIME: 15:10 Assessment/Plan VTE Prophylaxis VTE Prophylaxis Intervention: ambulation Lines/Catheters IV Catheter Type (from [facility]): [place] Lock Urinary Cath still in place: No Assessment/Plan Assessment/Plan Assessment * Melena resolved EGD 03/13/2016 Moderate gastritis. Rule out Helicobacter pylori infection. Biopsies were obtained. * Diabetes mellitus * Adrenal mass by ct scan Plan * continue ppi for 2 weeks * stable for outpatient management * follow up after 6 weeks for elective colonoscopy Subjective 24 Hr Interval Summary Free Text/Dictation * Course reviewed with RN * patient seen and examined * denies abdominal pain * no melena Exam/Review of Systems Vital Signs Vitals Vital Signs Date Time Temp Pulse Resp B/P Pulse Ox O2 Delivery O2 Flow Rate FiO2 03/15/17 08:00 98.5 70 20 114/68 95 03/13/17 20:21 Room Air Intake and Output 03/14/17 03/14/17 03/15/17 15:00 23:00 07:00 Intake Total 835 ml 1100 ml 300 ml Balance 835 ml 1100 ml 300 ml Exam Constitutional: alert, oriented Head: normocephalic Neck: non-tender, supple Respiratory: clear to auscultation, normal air movement Cardiovascular: nl pulses, regular rate and rhythm Gastrointestinal: non-tender, soft Musculoskeletal: nl extremities to inspection, nl gait and stance Extremities: normal pulses Neurological: nl mental status, nl speech, nl strength Skin: nl turgor, No rash or lesions Results Result Diagram: 03/15/17 0514 03/15/17 0514 Results 24 hrs Laboratory Tests Test 03/14/17 17:14 03/14/17 21:04 03/15/17 05:14 03/15/17 08:13 Bedside Glucose 122 131 119 White Blood Count 8.6 Red Blood Count 4.12 L Hemoglobin 12.4 L Hematocrit 35.7 L Mean Corpuscular Volume 86.7 Mean Corpuscular Hemoglobin 30.1 Mean Corpuscular Hemoglobin Concent 34.7 Red Cell Distribution Width 12.0 Platelet Count 361 Mean Platelet Volume 9.7 Neutrophils % 61.8 Lymphocytes % 23.0 Monocytes % 10.3 Eosinophils % 3.7 Basophils % 0.8 Nucleated Red Blood Cells % 0.0 Neutrophils # 5.3 Lymphocytes # 2.0 Monocytes # 0.9 Eosinophils # 0.3 Basophils # 0.1 Nucleated Red Blood Cells # 0.0 Sodium Level 144 Potassium Level 3.4 L Chloride Level 101 Carbon Dioxide Level 28 Anion Gap 18 H Blood Urea Nitrogen 4 L Creatinine 0.68 Glucose Level 134 Calcium Level 9.0 Total Bilirubin 0.2 Direct Bilirubin 0.00 Indirect Bilirubin 0.2 Aspartate Amino Transf (AST/SGOT) 22 Alanine Aminotransferase (ALT/SGPT) 28 Alkaline Phosphatase 57 Total Protein 7.0 Albumin 3.5 Globulin 3.50 H Albumin/Globulin Ratio 1.00 Lipase 552 H Test 03/15/17 11:53 Bedside Glucose 186 Medications Medications Current Medications Ondansetron HCl (Zofran Inj) 4 mg Q6H PRN IV NAUSEA AND/OR VOMITING; Start 03/09 at 03:00 Hydromorphone HCl (Dilaudid) 0.5 mg Q4H PRN IV PAIN LEVEL 7-10; Start 03/09/17 at 03:00 Lisinopril (Zestril) 10 mg DAILY PO Last administered on 03/14/17 08:57; Admin Dose 10 MG; Start 03/09/17 at 09:00 Acetaminophen 650 mg 650 mg Q6H PRN PO PAIN AND OR ELEVATED TEMP Last administered on 03/10/17 00:32; Admin Dose 650 MG; Start 03/10/17 at 00:30 Piperacillin Sod/ Tazobactam Sod (Zosyn 3.375gm/ 100 ml (Pmx)) 100 ml @ 200 mls /hr Q8 IVPB Last administered on 03/15/17 13:31; Admin Dose 200 MLS/HR; Start 03/10/17 at 14:00 Tamsulosin HCl (Flomax) 0.4 mg HS PO Last administered on 03/14/17 21:06; Admin Dose 0.4 MG; Start 03/10/17 at 21:00 Pantoprazole (Protonix Iv) 40 mg BID@06,18 IV Last administered on 03/15/17 05 :44; Admin Dose 40 MG; Start 03/12/17 at 18:00 Diagnostic Test (Pha) (Accu-Chek) 1 ea 02 XX ; Start 03/14/17 at 02:00 Miscellaneous Information 1 ea NOTE XX ; Start 03/14/17 at 01:30 Glucose (Glutose) 15 gm Q15M PRN PO DECREASED GLUCOSE; Start 03/14/17 at 01:30 Glucose (Glutose) 22.5 gm Q15M PRN PO DECREASED GLUCOSE; Start 03/14/17 at 01:30 Dextrose (D50w Syringe) 25 ml Q15M PRN IV DECREASED GLUCOSE; Start 03/14/17 at 01:30 Dextrose (D50w Syringe) 50 ml Q15M PRN IV DECREASED GLUCOSE; Start 03/14/17 at 01:30 Glucagon (Glucagen) 1 mg Q15M PRN IM DECREASED GLUCOSE; Start 03/14/17 at 01:30 Glucose (Glutose) 15 gm Q15M PRN BUCCAL DECREASED GLUCOSE; Start 03/14/17 at 01: 30 JACQUIE KRAUS MD March 15, 2017 15:13
--- NOTE | 2017-03-15 16:11 | DS ---
DATE OF ADMISSION: 03/09/2017 DATE OF DISCHARGE: 03/15/2017 CONSULTANTS: 1. Dr. Elliott Mitchell 2. Dr. Brett Avalos PROCEDURE: Upper endoscopy, gastroduodenoscopy with biopsy. Impression: Moderate gastritis. Biop sy was obtained. DISCHARGE DIAGNOSES: 1. Acute pancreatitis, resolving. 2. Melena. Stool occult blood was negative. The upper endoscopy did not show any evidence of blee ding. Hemoglobin and hematocrit has been stable. 3. Diabetes mellitus. 4. An incidental adrenal adenoma, patient is to follow up with sales and marketing executive. 5. , follow up with endocrinology. 6. Dyslipidemia. At this time, we will hold statins for the next 2 weeks secondary to pancreatitis . 7. Essential hypertension, well controlled on the antihypertensives. 8. Benign prostatic hypertrophy. Patient has been placed on Flomax. 9. Normocytic normochromic anemia, status post vitamin supplementation. Hemoglobin and hematocrit has been stable. LABORATORY: WBC 8.6, hemoglobin 12.4, hematocrit 35.7, platelets 361. Sodium 144, potassium 3.4, chloride 101, bicarbonate 28, BUN 4, creatinine 0.68, glucose 134, calcium 9.0. LFTs all within nor mal limits. Lipase 522, CA 19-9 is 43.4. Vitamin B12 is 351 and prolactin 8.1. MEDICATIONS: 1. Keflex. 2. Zofran. 3. Flomax. 4. Aspirin. 5. Lipitor, which will be held for the next 2 weeks. 6. Lisinopril. 7. Metformin. 8. Protonix. 9. Ferrous sulfate. ALLERGIES: NO KNOWN DRUG ALLERGIES. HOSPITAL COURSE: This is a 56-year-old gentleman with past medical history of diabetes mellitus, dy slipidemia, hypertension who presented to [facility] secondary to abdominal pain x 4 to 5 days, abdominal pain was described as pressure-like, epigastric, non-radiating, denied any pr evious episodes, no nausea, vomiting, change in the color of stool, found to have a temperature of 1 00.8. Primary labs showed WBC 11.1, hemoglobin 13.4, hematocrit 39.0, platelets 241. His lipase wa s found to be 10,230; tree feller was consulted. The patient also had a CAT scan of the abdo men and pelvis, edematous pancreatic tail with mild adjacent stranding suggestive of pancreati tis. MRI of the abdomen was obtained which showed focal prominent pancreatic tail, minimal surround ing inflammatory changes consistent with focal acute pancreatitis. There is also likely associated reactive inflammatory changes of the splenic flexure of the colon, simple appearing bilateral renal cysts, otherwise normal. The patient was made n.p.o., IV fluid, pain medication. He was seen and e valuated by tree feller and had an upper endoscopy which showed moderate gastritis and was co ntinued on PPI. The patient was also seen and evaluated by the sales and marketing executive secondary to diabete s mellitus and incidental finding of the adrenal adenoma. Workup was done by the sales and marketing executive. T he patient's lipase has been improving significantly. The patient was placed on a clear liquid diet and has been advanced to full liquid diet. This morning his lipase has improved. Denies abdominal pain. Has been able to tolerate full liquid diet, will be advanced to soft diet. He will be stable to be discharged home with close followup with tree feller as an outpatient for furth er evaluation and for followup of the biopsy. Dictated By: MAGGIE TORRES/ZAINAB Conf#: [id number] DID#: [id number]
[2017-03-16 17:39] LABS: FREE TESTOSTERONE 42.3 pg/mL (35.0-155.0)
== END 2017-03-15 16:15 | disposition home or self-care (01) | DRG 439 ==
LOC: E/R 20:01 → TEL 03-09 00:36 → MS2 03-12 06:24
PROVIDERS: ADMIT Family Medicine; ATTEND Family Medicine
PROC: 0DB68ZX Excision of Stomach, Via Natural or Artificial Opening Endoscopic, Diagnostic (ICD-10-PCS; principal; 2017-03-13 21:00)
DX: K85.90 Acute pancreatitis without necrosis or infection, unspecified (principal); R65.10 Systemic inflammatory response syndrome (SIRS) of non-infectious origin without acute organ dysfunction; E61.1 Iron deficiency; E11.9 Type 2 diabetes mellitus without complications; D64.9 Anemia, unspecified; I10 Essential (primary) hypertension; E78.5 Hyperlipidemia, unspecified; N40.0 Benign prostatic hyperplasia without lower urinary tract symptoms; D35.01 Benign neoplasm of right adrenal gland; N52.9 Male erectile dysfunction, unspecified
CPT/HCPCS: 36415; 71010; 74176; 74181; 76705; 80048; 80053; 80061; 81001; 81003; 82150; 82270; 82306; 82382; 82384; 82533; 82607; 82728; 82962; 83036; 83540; 83605; 83690; 83735; 84100; 84146; 84403; 84484; 85025; 85610; 85730; 86301; 87040; 87086; 88305; 88312; 93005; 96374; 96375; C9113; J0692; J0696; J1815; J2543; J2916; J3370; J3480; J7030

== ENCOUNTER 2017-06-30 10:59 | Day surgery (SDC) | payer OTHER ==
[~2017-06-30] VITALS: Ht 182.9 cm; Wt 78.5 kg
[~2017-06-30 10:59] MED LIST changes: +ASPI-664 PO; +ATOR20TA38 PO; -AZIT250T94 PO; -CETI10CA PO; +FER325 PO; +LISI10TA2 PO; +METF-480 PO; +PANT40TA4 PO; +SENN-53 PO; +SIME125C69 PO; +TAMS-14 PO; -UDROBDM PO; -dm meds
[2017-06-30 12:00] VITALS: Ht 182.9 cm; Wt 78.5 kg
[2017-06-30 12:49] VITALS: BP 112/64; PULSE 75; RESP 18
[2017-06-30] MEDS ORDERED: MIDAZOLAM 1 MG/ML 2 ML INJ ONE (13:56)
[2017-06-30] MEDS ORDERED: LIDOCAINE 2% (SDV) 5 ML INJ ONE (13:56)
[2017-06-30] MEDS ORDERED: PROPOFOL 40 ML ONE (13:56)
--- NOTE | 2017-06-30 14:27 | OPPN ---
Date/Time of Note Date/Time of Note DATE: 06/30/17 TIME: 14:25 Proc Note GI Free Text/Dictation Preoperative Diagnosis: Dyspepsia/reflux symptoms Postoperative Diagnosis: * Moderate gastritis. Rule out H. pylori infection. Biopsies obtained * Otherwise normal EGD Plan: * Continue PPI therapy * Review pathology * Follow-up as previously scheduled Procedure Performed: EGD with biopsies Surgeon: Jacquie Avalos MD Repulping Supervisor: None Second Flame Cutter: None Anesthesia/Sedation: MAC per anesthesiologist Tourniquet Time: NA Estimated Blood Loss: None Transfusion Required: No Specimens: None Grafts/Implants: None Tubes/Drains: NA Complications: None Pt. Condition Post Procedure: Stable Disposition: Home After informed consent, with the patient/relatives understanding the procedure, its indications, potential risks and complications, including but not limited to : allergic reaction, bleeding, perforation or infection, and after all pertinent questions were answered to the patients satisfaction, the patient/ relatives signed witnessed informed consent. Following this, premedication was administered slowly IV push under careful cardiovascular and respiratory monitoring with pulse oximetry, automatic blood pressure, and cardiac monitor technician. Once the sedative effect was achieved the patient was place in the left lateral decubitus, the panendoscope was introduced and advanced under visual control. Careful examination of the upper gastrointestinal tract, both on insertion as well as withdrawal of the instrument disclosing the following findings: ESOPHAGUS: the mucosa of the entire esophagus was carefully examined and showed the following findings: the mucosa appears within normal limits. There is no evidence of esophagitis, varices, neoplasm, or stricture. No Hiatal Hernia identified. STOMACH: Upon entrance to the stomach air was insufflated, the gastric echavarria distended normally. The mucosa of the fundus, body and antrum of the stomach was carefully examined both head-on and on retroflexion, and showed the following findings: There is mild erythema and edema of the mucosa of the antrum. Biopsies were obtained to rule out H. pylori infection. Otherwise the mucosa appears within normal limits with no abnormalities. There is no evidence of ulcers or neoplasm. PYLORUS: The pylorus was carefully examined and showed the following findings: the pylorus appears patent and within normal limits, with no evidence of gastric outlet obstruction. DUODENUM: The duodenal mucosa was carefully examined in the duodenal bulb as well as the second portion of the duodenum and showed the following findings: the mucosa appears unremarkable with no evidence of duodenitis, ulcer or neoplasm. Procedure date: Jun 30, 2017 JACQUIE AVALOS MD Jun 30, 2017 14:27
--- NOTE | 2017-06-30 14:30 | OPPN ---
Date/Time of Note Date/Time of Note DATE: 06/30/17 TIME: 14:28 Proc Note GI Free Text/Dictation Procedure Date: 06/30/2017 Preoperative Diagnosis: Colorectal cancer screening Postoperative Diagnosis: * Normal colonic mucosa to cecum * Moderate-sized internal hemorrhoids Plan: * Annual Hemoccult stool testing * High-fiber diet * Screening colonoscopy in 10 years Procedure Performed: Colonoscopy Surgeon: Jacquie Avalos MD Childbirth Educator: None Second Manager Equipment: None Anesthesia/Sedation MAC per anesthesiologist Tourniquet Time: NA Estimated Blood Loss: None Transfusion Required: No Specimens: None Grafts/Implants: None Tubes/Drains: NA Complications: None Pt. Condition Post Procedure: Stable Disposition: Home After informed consent, with the patient/relatives understanding the procedure, its indications and potential risks and complications, including but not limited to: Allergic reaction, bleeding, perforation, infection, and after all pertinent questions were answered to the patient's satisfaction, the patient/ relatives signed the witnessed informed consent. Following this, premedication was administered slowly IV push under careful cardiovascular and respiratory monitoring with pulse OXIMETRY, automatic blood pressure, and court recording monitor. Once the sedative effect was achieved, the patient was placed in the left lateral decubitus position, digital rectal examination was performed. A colonoscope was then introduced and advanced under visual control throughout all segments of the colon including: [the rectum, sigmoid, descending colon, splenic flexure, transverse colon, hepatic flexure, ascending colon and finally reaching the cecum which was clearly identified by transillumination, finger indentation and the ileocecal valve.] Careful examination of the mucosa of the lower gastrointestinal tract both on insertion as well as withdrawal of the instrument disclosed the following findings: Preparation quality: [Adequate], Rectal Examination: The anorectal area was visualized examined and digital rectal examination performed with the following findings: [No evidence of perirectal disease, no masses.] Colonic mucosa: The mucosa of all segments of the colon was carefully examined and showed the following findings: [the examined mucosa appears within normal limits. There is no evidence of inflammatory changes, diverticular formation, polyps or other neoplasms, vascular malformation, or any other abnormality.] Moderate-sized internal hemorrhoids are present. The instrument was then withdrawn, the patient tolerated the procedure well and was transferred out of the Endoscopy Suite awake and in good condition to continue recovery under observation. Procedure date: Jun 30, 2017 JACQUIE AVALOS MD Jun 30, 2017 14:30
[2017-06-30 14:56] VITALS: BP 105/72; PULSE 71; RESP 14
== END 2017-06-30 15:37 | disposition home or self-care (01) ==
LOC: GIL 10:59
PROVIDERS: ATTEND Internal Medicine Gastroenterology
DX: Z12.11 Encounter for screening for malignant neoplasm of colon (principal); D12.2 Benign neoplasm of ascending colon; K29.70 Gastritis, unspecified, without bleeding; E11.9 Type 2 diabetes mellitus without complications
CPT/HCPCS: 43239; 45380; 88305; 88312; J2250; Z7610